=== PATIENT | female | born 1985 | race Caucasian/White ===

== ENCOUNTER 2016-09-05 02:11 | Emergency (ER) | payer OTHER ==
--- NOTE | 2016-09-05 02:24 | PDOC ---
History of Present Illness - History of Present Illness Initial Comments: 09/05/16 03:02 The patient is a 31 year old female, with no significant past medical history, who presents to the emergency department with sudden headache and nausea which woke her from her sleep this morning. As per her , the patient woke up shaking and complaining of feeling like her "heart is racing". The patient denies taking anything for pain. The states she does patient states she does not work because she had surgery to her hip some time ago, but still experiences pain to her hip. She denies chest pain, shortness of breath, and dizziness. She denies fever, chills, vomit, diarrhea and constipation. She denies dysuria, frequency, urgency and hematuria. Allergies: aspirin Past surgical history: left hip surgery Social history: denies toxic habits <Venus Jaffe - Last Filed: 09/05/16 03:02> <Марина Durant - Last Filed: 09/05/16 05:04> - General Chief Complaint: Tachycardia Stated Complaint: RAPID HEAR BEAT Time Seen by Provider: 09/05/16 02:15 Past History <Venus Jaffe - Last Filed: 09/05/16 03:02> - Surgical History Orthopedic Surgery: Yes (left hip replacement ) - Psycho/Social/Smoking Cessation Hx Anxiety: No Suicidal Ideation: No Smoking History: Never smoked Have you smoked in the past 12 months: No Hx Alcohol Use: No Drug/Substance Use Hx: No Substance Use Type: None <Марина Durant - Last Filed: 09/05/16 05:04> - Past Medical History Allergies/Adverse Reactions: Allergies Allergy/AdvReac Type Severity Reaction Status Date / Time aspirin AdvReac Verified 09/05/16 02:19 Home Medications: Ambulatory Orders Gabapentin 300 mg PO BID #90 capsule 12/27/15 Oxycodone HCl/Acetaminophen [Percocet 5-325 mg Tablet] 2 tab PO Q6H PRN #12 tablet MDD 4 12/27/15 Cholecalciferol (Vitamin D3) [Vitamin D-400] 400 unit PO DAILY 09/05/16 Nitrofurantoin Monohyd/M-Cryst [Macrobid -] 100 mg PO BID #14 capsule 09/05/16 Review of Systems - Review of Systems Able to Perform ROS?: Yes Comments:: 09/05/16 03:05 GENERAL/CONSTITUTIONAL: No fever or chills. No weakness. HEAD, EYES, EARS, NOSE AND THROAT: No change in vision. No ear pain or discharge. No sore throat. CARDIOVASCULAR: (+) palpitations. No chest pain or shortness of breath. RESPIRATORY: No cough, wheezing, or hemoptysis. GASTROINTESTINAL: (+) nausea, No vomiting, diarrhea or constipation. GENITOURINARY: No dysuria, frequency, or change in urination. MUSCULOSKELETAL: No joint or muscle swelling or pain. No neck or back pain. SKIN: No rash NEUROLOGIC: (+) headache, No vertigo, loss of consciousness, or change in strength/sensation. ENDOCRINE: No increased thirst. No abnormal weight change. HEMATOLOGIC/LYMPHATIC: No anemia, easy bleeding, or history of blood clots. ALLERGIC/IMMUNOLOGIC: No hives or skin allergy. <Venus Jaffe - Last Filed: 09/05/16 03:02> *Physical Exam - Vital Signs Last Vital Signs Temp Pulse Resp BP Pulse Ox 134 H 30 H 128/80 99 09/05/16 02:20 09/05/16 02:20 09/05/16 02:20 09/05/16 02:20 - Physical Exam Comments: 09/05/16 03:05 GENERAL: (+) anxious appearing. Awake, alert, and fully oriented, in no acute distress HEAD: No signs of trauma EYES: PERRLA, EOMI, sclera anicteric, conjunctiva clear ENT: Auricles normal inspection, hearing grossly normal, nares patent, oropharynx clear without exudates. Moist mucosa NECK: Normal ROM, supple, no lymphadenopathy, JVD, or masses LUNGS: Breath sounds equal, clear to auscultation bilaterally. No wheezes, and no crackles HEART: (+) tachycardic rate with normal rhythm, normal S1 and S2, no murmurs, rubs or gallops ABDOMEN: Soft, nontender, normoactive bowel sounds. No guarding, no rebound. No masses EXTREMITIES: Normal range of motion, no edema. No clubbing or cyanosis. No cords, erythema, or tenderness NEUROLOGICAL: Cranial nerves II through XII grossly intact. Normal speech, normal gait SKIN: Warm, Dry, normal turgor, no rashes or lesions noted. <Venus Jaffe - Last Filed: 09/05/16 03:02> - Vital Signs Last Vital Signs Temp Pulse Resp BP Pulse Ox 134 H 30 H 128/80 99 09/05/16 02:20 09/05/16 02:20 09/05/16 02:20 09/05/16 02:20 <Марина Durant - Last Filed: 09/05/16 05:04> ED Treatment Course - LABORATORY CBC & Chemistry Diagram: 09/05/16 03:57 09/05/16 03:57 <Марина Durant - Last Filed: 09/05/16 05:04> Medical Decision Making - Medical Decision Making 09/05/16 04:57 Pt comes with headache and abdominal pain. She has a slight UTI, all other labs are normal; Pt was treated with tylenol for pain. She keeps asking for pain meds. She tells me that she has chronic hip pain and she wants oxycodone. However, pt is likely addicted to the oxycodone, and I will not treat her with narcotics. Pt is stable for discharge. Follow with medicine clinic and with nursing attendant 09/05/16 05:03 Rx Written Rx Dispensed Drug Quantity Days Supply Prescriber Name 08/24/2016 08/24/2016 endocet 10-325 mg tablet 51 17 Lalito Williamson MD 08/12/2016 08/12/2016 endocet 10-325 mg tablet 56 14 Lalito Williamson MD Patient Name: Licha Singh Date: 1985 Address: [address] [place] [address] Sex: Female Rx Written Rx Dispensed Drug Quantity Days Supply Prescriber Name 06/06/2016 06/06/2016 oxycodone-acetaminophen 10-325 mg tab 90 30 Lalito Williamson MD 05/04/2016 05/04/2016 oxycodone-acetaminophen 10-325 mg tab 90 30 Lalito Williamson MD 04/18/2016 04/18/2016 oxycodone-acetaminophen 10-325 mg tab 90 15 Lalito Williamson MD 03/09/2016 03/09/2016 oxycodone-acetaminophen 10-325 mg tab 90 15 Lalito Williamson MD 02/10/2016 02/10/2016 oxycodone-acetaminophen 10-325 mg tab 90 15 Lalito Williamson MD 01/18/2016 01/18/2016 oxycodone-acetaminophen 10-325 mg tab 90 15 Lalito Williamson MD 01/04/2016 01/04/2016 oxycodone-acetaminophen 7.5-325 mg tab 28 14 Lalito Williamson MD 12/30/2015 12/31/2015 lyrica 50 mg capsule 24 8 Torri Dawkins NP 12/07/2015 12/13/2015 oxycodone-acetaminophen 10-325 mg tab 90 15 Lalito Williamson MD 12/03/2015 12/03/2015 [facility] 5-[facility]17[facility]2015 11/17/2015 [facility]one hcl 5 mg tablet [facility] 09/14/2015 09/14/2015 oxycodone-acetaminophen 10-325 mg tab 60 15 Bessy Mena 09/07/2015 09/07/2015 oxycontin 10 mg tablet 14 7 Jakub Ho (Zahraa Berman ) Pt is addicted to narcotics <Марина Durant - Last Filed: 09/05/16 05:04> *DC/Admit/Observation/Transfer - Attestations Scribe Attestion: 09/05/16 03:07 Documentation prepared by Venus Jaffe, acting as certified medical coder for Марина Durant MD <Venus Jaffe - Last Filed: 09/05/16 03:02> - Discharge Dispostion Admit: No <Марина Durant - Last Filed: 09/05/16 05:04> Diagnosis at time of Disposition: UTI (urinary tract infection), Opiate withdrawal, Narcotic abuse, Narcotic dependence - Discharge Dispostion Disposition: HOME Condition at time of disposition: Stable - Prescriptions Prescriptions: Nitrofurantoin Monohyd/M-Cryst [Macrobid -] 100 mg PO BID #14 capsule - Referrals Referrals: Pavel England MD [Staff Physician] - - Patient Instructions Printed Discharge Instructions: Urinary Tract Infection
[2016-09-05 02:43] VITALS: BP 128/80; BMI 25.4
[2016-09-05] MEDS ORDERED: ACETAMINOPHEN 500 MG TABLET (FP) PO ONE (03:00)
[2016-09-05] MEDS ORDERED: ACETAMINOPHEN 325 MG TABLET (FP) ONE (03:03)
[2016-09-05 03:07] VITALS: PULSE 101
[2016-09-05 04:07] LABS: BASOPHIL 0.5 % (0-2.0); EOSINOPHIL 0.4 % (0-4.5); MCH 30.7 pg (25.7-33.7); MCHC 32.7 g/dl (32.0-36.0); MEAN PLT VOLUME 8.2 fl (7.5-11.1); NEUTROPHILS 68.3 % (42.8-82.8); PLATELET COUNT 386 K/MM3 (134-434); RDW 12.9 % (11.6-15.6)
[2016-09-05 04:23] LABS: URINE APPEARANCE CLEAR; URINE BILIRUBIN NEGATIVE (NEGATIVE); URINE COLOR LTYELLOW; URINE GLUCOSE (UA) NEGATIVE (NEGATIVE); URINE KETONE TRACE (NEGATIVE); URINE NITRITE NEGATIVE (NEGATIVE); URINE PROTEIN NEGATIVE (NEGATIVE); URINE UROBILINOGEN NEGATIVE E.U./dl (0.2-1.0)
[2016-09-05 04:25] LABS: URINE BLOOD 1+ (NEGATIVE); URINE LEUK ESTERASE 3+ (NEGATIVE)
[2016-09-05 04:27] LABS: URINE BACTERIA FEW /hpf (NONE SEEN); URINE MUCUS RARE; URINE RBC 2 /hpf (0-3); URINE WBC 2 /hpf (3-5)
[2016-09-05 04:29] LABS: ALBUMIN 4.4 g/dl (3.4-5.0); ANION GAP 14 (8-16); BILIRUBIN,TOTAL 0.4 mg/dL (0.2-1.0); CALCIUM 9.7 mg/dL (8.5-10.1); CO2 20 mmol/L (21-32); CREATININE 0.7 mg/dL (0.55-1.02); GLUCOSE,RANDOM 92 mg/dL (74-106); SGOT/AST 14 U/L (15-37); SGPT/ALT 21 U/L (12-78); TOT PROT 7.3 g/dl (6.4-8.2)
[2016-09-05 04:30] LABS: ALK PHOS 69 U/L (45-117)
[2016-09-05] MEDS ORDERED: NITROFURANTOIN MACROCRYSTAL 50 MG CAPSULE (FP) PO SCH (04:30)
[2016-09-05] MEDS ORDERED: NITROFURANTOIN MACROCRYSTAL 50 MG CAPSULE (FP) ONE (04:52)
--- NOTE | 2016-09-05 10:15 | EKG ---
Test Reason : Blood Pressure : / mmHG Vent. Rate : 108 BPM Atrial Rate : 108 BPM P-R Int : 126 ms QRS Dur : 074 ms QT Int : 340 ms P-R-T Axes : 050 015 -19 degrees QTc Int : 455 ms SINUS TACHYCARDIA NONSPECIFIC T WAVE ABNORMALITY ABNORMAL ECG WHEN COMPARED WITH ECG OF 01-JAN-2016 15:44, NO SIGNIFICANT CHANGE WAS FOUND Confirmed by JAYNA CHEEK MD ([id number]) on 09/05/2016 10:14:54 AM Referred By: Confirmed By:JAYNA CHEEK MD
== END 2016-09-05 05:04 | disposition home or self-care (01) ==
LOC: JER 02:11
DX: N39.0 Urinary tract infection, site not specified (principal); F11.23 Opioid dependence with withdrawal
CPT/HCPCS: 36415; 80053; 81003; 81015; 85025; 93005; 93010; 99283-25

== ENCOUNTER 2016-09-05 11:08 | Emergency (ER) | payer OTHER ==
[2016-09-05 11:25] VITALS: BP 121/74; PULSE 96; TEMP 98.1; BMI 25.4
[2016-09-05] MEDS ORDERED: morphine CARPU-JECT 4 MG/1 ML DISP.SYRIN IVPUSH ONE (12:05)
[2016-09-05] MEDS ORDERED: METOCLOPRAMIDE HCL INJECTION 10 MG/2 ML VIAL IVPB ONE (12:05)
[2016-09-05] MEDS ORDERED: METOCLOPRAMIDE HCL INJECTION 10 MG/2 ML VIAL ONE (12:22)
[2016-09-05] MEDS ORDERED: morphine CARPU-JECT 4 MG/1 ML DISP.SYRIN ONE (12:22)
[2016-09-05 12:29] LABS: BASOPHIL 0.5 % (0-2.0); EOSINOPHIL 0.3 % (0-4.5); MCH 31.3 pg (25.7-33.7); MCHC 33.4 g/dl (32.0-36.0); MEAN CELL VOLUME 93.8 fl (80-96); NEUTROPHILS 72.1 % (42.8-82.8); PLATELET COUNT 337 K/MM3 (134-434); RDW 12.8 % (11.6-15.6); WHITE BLOOD COUNT 11.3 K/mm3 (4.0-10.0)
[2016-09-05 13:01] LABS: ALBUMIN 4.3 g/dl (3.4-5.0); ALK PHOS 66 U/L (45-117); ANION GAP 9 (8-16); BILIRUBIN,TOTAL 0.5 mg/dL (0.2-1.0); CALCIUM 9.1 mg/dL (8.5-10.1); CO2 23 mmol/L (21-32); CREATININE 0.6 mg/dL (0.55-1.02); GLUCOSE,RANDOM 87 mg/dL (74-106); SGOT/AST 15 U/L (15-37); SGPT/ALT 19 U/L (12-78); TOT PROT 7.4 g/dl (6.4-8.2)
--- NOTE | 2016-09-05 14:27 | PDOC ---
History of Present Illness - General History Source: Patient, Old Records Exam Limitations: No Limitations - History of Present Illness Initial Comments: 09/05/16 14:41 The patient is a 31 year old female, with a significant past medical history of anemia, who presents to the emergency department with palpitations since 8am this morning, headache for 1 week as well as bilateral hip pain for the past 2 weeks. She also reports nausea and shortness of breath associated with her chief complaints. She describes her hip pain as ranging from mild to moderate, without radiation or modifying factors. She states that she is having blood flow issues on the right side of her hip for which she is seeing a surgeon for possible surgery. She describes her headache as ranging from mild to moderate, without radiation or modifying factors. The patient was in the ED earlier this morning for the same symptoms, headache, nausea, palpitation and hip pain. She was given Tylenol and antibiotics for a mild UTI that was diagnosed. She was discharged after improvement of symptoms. The patient denies chest pain, shortness of breath and dizziness. Denies fever, chills, vomit, diarrhea and constipation. Denies dysuria, frequency, urgency and hematuria. Allergies: Aspirin Past surgical history: Left sided hip surgery (x2) Social history: No alcohol, tobacco or drug use reported Surgeon: Dr. Gonzalez <Shola Rothman - Last Filed: 09/05/16 14:41> - General History Source: Patient Exam Limitations: No Limitations <Darin Garcia - Last Filed: 09/05/16 17:01> - General Chief Complaint: Palpitations Stated Complaint: TACHYCARDIA Time Seen by Provider: 09/05/16 11:45 Past History <Shola Rothman - Last Filed: 09/05/16 14:41> - Surgical History Orthopedic Surgery: Yes (left hip replacement ) - Psycho/Social/Smoking Cessation Hx Anxiety: No Suicidal Ideation: No Smoking History: Never smoked Have you smoked in the past 12 months: No Hx Alcohol Use: No Drug/Substance Use Hx: No Substance Use Type: None <Darin Garcia - Last Filed: 09/05/16 17:01> - Past Medical History Allergies/Adverse Reactions: Allergies Allergy/AdvReac Type Severity Reaction Status Date / Time aspirin AdvReac Verified 09/05/16 11:23 Home Medications: Ambulatory Orders Gabapentin 300 mg PO BID #90 capsule 12/27/15 Gabapentin 300 mg PO TID PRN #21 capsule 09/05/16 Oxycodone HCl 5 mg PO Q6H PRN #12 tablet MDD 4 09/05/16 Review of Systems - Review of Systems Able to Perform ROS?: Yes Comments:: 09/05/16 14:41 GENERAL/CONSTITUTIONAL: No fever or chills. No weakness. HEAD, EYES, EARS, NOSE AND THROAT: No change in vision. No ear pain or discharge. No sore throat. CARDIOVASCULAR: No chest pain or shortness of breath RESPIRATORY: No cough, wheezing, or hemoptysis. GASTROINTESTINAL: (+)Nausea. No vomiting, diarrhea or constipation. GENITOURINARY: No dysuria, frequency, or change in urination. MUSCULOSKELETAL: (+)Bilateral hip pain. No neck or back pain. SKIN: No rash NEUROLOGIC: (+)Headache. No vertigo, loss of consciousness, or change in strength/sensation. ENDOCRINE: No increased thirst. No abnormal weight change HEMATOLOGIC/LYMPHATIC: No anemia, easy bleeding, or history of blood clots. ALLERGIC/IMMUNOLOGIC: No hives or skin allergy. <Shola Rothman - Last Filed: 09/05/16 14:41> *Physical Exam - Vital Signs Last Vital Signs Temp Pulse Resp BP Pulse Ox 98.1 F 96 H 19 121/74 100 09/05/16 11:23 09/05/16 11:23 09/05/16 11:23 09/05/16 11:23 09/05/16 11:23 - Physical Exam Comments: 09/05/16 14:41 GENERAL: Awake, alert, and fully oriented, in no acute distress HEAD: No signs of trauma, normocephalic, atraumatic EYES: PERRLA, EOMI, sclera anicteric, conjunctiva clear ENT: Auricles normal inspection, hearing grossly normal, nares patent, oropharynx clear without exudates. Moist mucosa NECK: Normal ROM, supple, no lymphadenopathy, JVD, or masses LUNGS: No distress, speaks full sentences, clear to auscultation bilaterally HEART: Regular rate and rhythm, normal S1 and S2, no murmurs, rubs or gallops, peripheral pulses normal and equal bilaterally. ABDOMEN: Soft, nontender, normoactive bowel sounds. No guarding, no rebound. No masses EXTREMITIES: Normal inspection, Normal range of motion, no edema. No clubbing or cyanosis. NEUROLOGICAL: Cranial nerves II through XII grossly intact. Normal speech, normal gait, no focal sensorimotor deficits SKIN: Warm, Dry, normal turgor, no rashes or lesions noted. <Shola Rothman - Last Filed: 09/05/16 14:41> - Vital Signs Last Vital Signs Temp Pulse Resp BP Pulse Ox 98.1 F 96 H 19 121/74 100 09/05/16 11:23 09/05/16 11:23 09/05/16 11:23 09/05/16 11:23 09/05/16 11:23 <Darin Garcia - Last Filed: 09/05/16 17:01> Heart Score/ECG Review #1 ECG reviewed & interpreted by me at: 11:20 09/05/16 15:19 NSR 95, TWI III, T wave flat v2,V5-V6, no std/monica, QTC 490 msec <Darin Garcia - Last Filed: 09/05/16 17:01> ED Treatment Course - LABORATORY CBC & Chemistry Diagram: 09/05/16 12:20 09/05/16 12:20 - ADDITIONAL ORDERS Additional order review: Laboratory Results 09/05/16 09/05/16 12:20 12:20 Sodium 141 Potassium 3.9 Chloride 109 H Carbon Dioxide 23 Anion Gap 9 BUN 10 Creatinine 0.6 Creat Clearance w eGFR > 60 Random Glucose 87 Calcium 9.1 Total Bilirubin 0.5 D AST 15 ALT 19 Alkaline Phosphatase 66 Total Protein 7.4 Albumin 4.3 Serum , Qual Negative 09/05/16 12:20 RBC 4.04 MCV 93.8 MCHC 33.4 RDW 12.8 MPV 8.0 Neutrophils % 72.1 Lymphocytes % 21.2 Monocytes % 5.9 Eosinophils % 0.3 Basophils % 0.5 - Medications Given in the ED: ED Medications Discontinued Medications Generic Name Dose Route Start Last Admin Trade Name Freq PRN Reason Stop Dose Admin Metoclopramide HCl 10 mg 09/05/16 12:09/05/16 12:27 Reglan Injection - IVPB 09/05/16 12:06 10 mg ONCE ONE Administration Morphine Sulfate 4 mg 09/05/16 12:09/05/16 12:27 Morphine Injection - IVPUSH 09/05/16 12:06 4 mg ONCE ONE Administration Oxycodone HCl 10 mg 09/05/16 14:29 09/05/16 14:38 Roxicodone - PO 09/05/16 14:30 10 mg ONCE ONE Administration <Shola Rothman - Last Filed: 09/05/16 14:41> - LABORATORY CBC & Chemistry Diagram: 09/05/16 12:20 09/05/16 12:20 - ADDITIONAL ORDERS Additional order review: Laboratory Results 09/05/16 09/05/16 12:20 12:20 Sodium 141 Potassium 3.9 Chloride 109 H Carbon Dioxide 23 Anion Gap 9 BUN 10 Creatinine 0.6 Creat Clearance w eGFR > 60 Random Glucose 87 Calcium 9.1 Total Bilirubin 0.5 D AST 15 ALT 19 Alkaline Phosphatase 66 Total Protein 7.4 Albumin 4.3 Serum , Qual Negative 09/05/16 12:20 RBC 4.04 MCV 93.8 MCHC 33.4 RDW 12.8 MPV 8.0 Neutrophils % 72.1 Lymphocytes % 21.2 Monocytes % 5.9 Eosinophils % 0.3 Basophils % 0.5 - RADIOLOGY Radiology Studies Ordered: Category Date Time Status HEAD CT WITHOUT CONTRAST [CT] Stat CT Scan 09/05/16 12:05 Completed HIP & PELVIS-RIGHT [RAD] Stat Radiology 09/05/16 12:05 Taken - Medications Given in the ED: ED Medications Discontinued Medications Generic Name Dose Route Start Last Admin Trade Name Freq PRN Reason Stop Dose Admin Metoclopramide HCl 10 mg 09/05/16 12:05 09/05/16 12:27 Reglan Injection - IVPB 09/05/16 12:06 10 mg ONCE ONE Administration Morphine Sulfate 4 mg 09/05/16 12:05 09/05/16 12:27 Morphine Injection - IVPUSH 09/05/16 12:06 4 mg ONCE ONE Administration <Darin Garcia - Last Filed: 09/05/16 17:01> Medical Decision Making - Medical Decision Making 09/05/16 15:20 A portion of this note was documented by scribe services under my direction. I have reviewed the details of the note, within reason, and agree with the documentation with the following case summary and management plan written by me. Patient treated in the ED. Nursing notes are reviewed and incorporated into the medical decision-making. Vital signs reviewed. Peripheral IV access obtained by the nurse, laboratory studies are drawn and sent, reviewed and interpreted by myself. 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 The patient reports that the pain has been intermittent and progressively worsened despite taking 1 tablet of Percocet every 6 hours as needed for pain. The patient states that the pain causes her to feel palpitations but patient denies chest pain or shortness of breath. The patient was seen in the ED earlier this morning and was diagnosis potential drug- seeking behavior and given Tylenol. The patient also has developed a tension- like headache for one week which is new. Denies history of migraines or family history of migraines. With accommodation a headache and the worsening right hip pain, patient came to the ED. The patient states that she ran out of her Percocets. I had obtain a head CT which was negative. I obtain a pelvis x-ray which shows no acute findings. An her blood work and she is no acute findings. EKG is stable. I suspect that this is acute on chronic pain. Patient's pain improved with 2 tablets of Percocets and morphine. I instructed the patient that it is very important that she follows up with her doctor. She is scheduled to have potential right hip replacement. 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 I advised that I will only write several oxycodone's and for the rest she needs to follow up with her doctors. Patient is also requesting her refills of her gabapentin 300 mg 3 times a day. Patient will go home with her family. I discussed the physical exam findings, ancillary test results and final diagnoses with the patient. I answered all of the patient's questions. The patient was satisfied with the care received and felt comfortable with the discharge plan and treatment plan. The patient will call their primary care physician within 24 hours to arrange follow-up and will return to the Emergency Department with any new, persistant or worsening symptoms. <Darin Garcia - Last Filed: 09/05/16 17:01> *DC/Admit/Observation/Transfer - Attestations Scribe Attestion: 09/05/16 14:42 Documentation prepared by Shola Rothman, acting as family practice medical doctor for Darin Garcia MD <Shola Rothman - Last Filed: 09/05/16 14:41> - Discharge Dispostion Admit: No <Darin Garcia - Last Filed: 09/05/16 17:01> Diagnosis at time of Disposition: Right hip pain - Discharge Dispostion Disposition: HOME Condition at time of disposition: Improved - Prescriptions Prescriptions: Gabapentin 300 mg PO TID PRN #21 capsule PRN Reason: Chronic Hip Pain Oxycodone HCl 5 mg PO Q6H PRN #12 tablet MDD 4 PRN Reason: Pain Level 6-10 - Referrals Referrals: Dayron Cline MD [Staff Physician] - - Patient Instructions Printed Discharge Instructions: Help for Hip Pain Additional Instructions: Your workup done shows no acute findings at this time. Your pain is likely secondary to your chronic hip pain. It is very important that you follow-up with your surgeon as prior. You will need to evaluate for potential surgery. If he develop uncontrollable pain, please return to the ER for further evaluation. Print Language: TAJIK
[2016-09-05] MEDS ORDERED: oxyCODONE HCL 5 MG TABLET PO ONE (14:29)
[2016-09-05] MEDS ORDERED: oxyCODONE HCL 5 MG TABLET ONE (14:37)
--- NOTE | 2016-09-06 23:02 | EKG ---
Test Reason : Blood Pressure : / mmHG Vent. Rate : 095 BPM Atrial Rate : 095 BPM P-R Int : 140 ms QRS Dur : 076 ms QT Int : 390 ms P-R-T Axes : 023 011 -03 degrees QTc Int : 490 ms NORMAL SINUS RHYTHM NONSPECIFIC T WAVE ABNORMALITY PROLONGED QT ABNORMAL ECG WHEN COMPARED WITH ECG OF 05-SEP-2016 02:32, NO SIGNIFICANT CHANGE WAS FOUND Confirmed by ALEXIS CULVER MD ([id number]) on 09/06/2016 11:01:26 PM Referred By: Confirmed By:ALEXIS CULVER MD
== END 2016-09-05 16:09 | disposition home or self-care (01) ==
LOC: JER 11:08
PROC: 3E033NZ Introduction of Analgesics, Hypnotics, Sedatives into Peripheral Vein, Percutaneous Approach (ICD-10-PCS; principal; 2016-09-05)
PROC: 3E033GC Introduction of Other Therapeutic Substance into Peripheral Vein, Percutaneous Approach (ICD-10-PCS; 2016-09-05)
DX: M25.551 Pain in right hip (principal); Z96.642 Presence of left artificial hip joint
CPT/HCPCS: 36415; 70450-TC; 73523-TC; 80053; 84703; 85025; 93005; 93010; 96374; 96375; 99281-25

== ENCOUNTER 2016-12-16 06:02 | Emergency (ER) | payer OTHER ==
[2016-12-16 06:26] VITALS: BMI 27.1
[2016-12-16] MEDS ORDERED: SODIUM CHLORIDE 1,000 ML IV STA (06:30)
[2016-12-16] MEDS ORDERED: ONDANSETRON 4 MG/2 ML VIAL IVPUSH ONE (06:31)
[2016-12-16] MEDS ORDERED: morphine CARPU-JECT 2 MG/1 ML DISP.SYRIN IVPUSH ONE (06:31)
[2016-12-16] MEDS ORDERED: ONDANSETRON 4 MG/2 ML VIAL ONE (06:36)
[2016-12-16] MEDS ORDERED: morphine CARPU-JECT 4 MG/1 ML DISP.SYRIN ONE (06:36)
--- NOTE | 2016-12-16 06:40 | PDOC ---
History of Present Illness - General Chief Complaint: Pain Stated Complaint: STOMACH PAIN/VOMITING Time Seen by Provider: 12/16/16 06:17 - History of Present Illness Initial Comments: 12/16/16 06:34 31 yo F with h/o gastritis, chronic left hip pain, who presents with abdominal pain. Pt. reports 2 weeks of abdominal pain, N/V, with increased severity and frequency over night. States that she has been experiencing remitting, diffuse, sharp, abdominal pain lasting 1-2 minutes and recurring every 30 minutes. Has vomited once overnight and denies blood in emesis. Endorses diffuse tension type headache and loss of appetite. Complains of dysuria for 2 days. Abdominal pain with no specific triggers, absent postprandial pain, and no alleviating factors. Denies constipation/diarrhea, blood in stool. Denies fevers/chills, chest pain, SOB, lightheadedness, vision disturbance, syncope, weakness, numbness/tingling, urinary incontinence, hematuria. Denies NSAID or antacid use. LMP 2 weeks ago. Denies irregular vaginal discharge or bleeding. H/o C- section. Denies abdominal trauma. Past History - Past Medical History Allergies/Adverse Reactions: Allergies Allergy/AdvReac Type Severity Reaction Status Date / Time aspirin AdvReac Verified 09/05/16 11:23 Home Medications: Ambulatory Orders Gabapentin 300 mg PO BID #90 capsule 12/27/15 Gabapentin 300 mg PO TID PRN #21 capsule 09/05/16 Cephalexin [Keflex] 500 mg PO TID #42 capsule 12/16/16 Ondansetron [Zofran Odt -] 4 mg SL BID PRN #14 od.tablet 12/16/16 Oxycodone HCl 10 mg PO Q6H PRN MDD 4 12/16/16 - Surgical History Orthopedic Surgery: Yes (left hip replacement ) - Psycho/Social/Smoking Cessation Hx Anxiety: No Suicidal Ideation: No Smoking History: Never smoked Have you smoked in the past 12 months: No Information on smoking cessation initiated: No Hx Alcohol Use: No Drug/Substance Use Hx: No Substance Use Type: None Review of Systems - Review of Systems Comments:: 12/16/16 06:41 GENERAL/CONSTITUTIONAL: No fever or chills. No weakness. HEAD, EYES, EARS, NOSE AND THROAT: No change in vision. No ear pain or discharge. No sore throat. CARDIOVASCULAR: No chest pain or shortness of breath RESPIRATORY: No cough, wheezing, or hemoptysis. GASTROINTESTINAL: + Abdominal pain, nausea, vomiting. No diarrhea or constipation. GENITOURINARY: No dysuria, frequency, or change in urination. MUSCULOSKELETAL: No joint or muscle swelling or pain. No neck or back pain. SKIN: No rash NEUROLOGIC:+ headache. No vertigo, loss of consciousness, or change in strength/ sensation. ENDOCRINE: No increased thirst. No abnormal weight change HEMATOLOGIC/LYMPHATIC: No anemia, easy bleeding, or history of blood clots. ALLERGIC/IMMUNOLOGIC: No hives or skin allergy. *Physical Exam - Vital Signs Last Vital Signs Temp Pulse Resp BP Pulse Ox 98.2 F 20 119/98 98 12/16/16 06:22 12/16/16 06:22 12/16/16 06:22 12/16/16 06:22 - Physical Exam Comments: 12/16/16 06:41 GENERAL: Awake, alert, and fully oriented, in no acute distress HEAD: No signs of trauma, normocephalic, atraumatic EYES: PERRLA, EOMI, sclera anicteric, conjunctiva clear ENT: Auricles normal inspection, hearing grossly normal, nares patent, oropharynx clear without exudates. Moist mucosa NECK: Normal ROM, supple, no lymphadenopathy, JVD, or masses LUNGS: No distress, speaks full sentences, clear to auscultation bilaterally HEART: Regular rate and rhythm, normal S1 and S2, no murmurs, rubs or gallops, peripheral pulses normal and equal bilaterally. ABDOMEN:TTP in all four quadrants. Negative guarding, rebound, rigidity. Absent mcburney point tenderness, or hernandez sign. Nontender, normoactive bowel sounds. No guarding, no rebound. No masses. Absent CVA tenderness. EXTREMITIES: Normal inspection, Normal range of motion, no edema. No clubbing or cyanosis. SKIN: Warm, Dry, normal turgor, no rashes or lesions noted. General Appearance: Yes: Nourished ED Treatment Course - LABORATORY CBC & Chemistry Diagram: 12/16/16 06:48 12/16/16 06:48 Medical Decision Making - Medical Decision Making 12/16/16 06:44 31 yo F with h/o gastritis, chronic left hip pain, who presents with abdominal pain. Pt. reports 2 weeks of abdominal pain, N/V, with increased severity and frequency over night. States that she has been experiencing remitting, diffuse, sharp, abdominal pain lasting 1-2 minutes and recurring every 30 minutes. Hemodynamically stable with diffuse ttp. Pt. with chronic pain managed with oxycodone 10 mg PO. Low suspicion for mesenteric ischemia . Denies postprandial pain, and absent disproportionate pain. Low suspicion for SBO, normal bowel habits. DDx:Gastritis, PUD, GERD, constipation. ED Course: CBC, CMP, Lipase BHCG NS 1 L [place] UA 12/16/16 07:05 CBC: 14.0 12/16/16 07:06 UA: + Urine Nitrite, trace leuk esterase, and 1+ Blood. *DC/Admit/Observation/Transfer Diagnosis at time of Disposition: Pyelonephritis - Prescriptions Prescriptions: Cephalexin [Keflex] 500 mg PO TID #42 capsule Ondansetron [Zofran Odt -] 4 mg SL BID PRN #14 od.tablet PRN Reason: Nausea And/Or Vomiting - Referrals Referrals: Vania Patricia MD [Primary Care Provider] - - Patient Instructions Printed Discharge Instructions: DI for Kidney Infection Additional Instructions: Usted fue visto por cotton dolor, nuseas y vmitos. Vimos que usted tiene óscar infeccin en cotton orina y le tratar con antibiticos. Joie sntomas se mejorarn despus de tratar la infeccin. Por favor, siga con cotton mdico de atencin primaria esta semana. Por favor regrese a la [place] si tiene nuseas, vmitos o fiebre empeorando a pesar de cotton uso de medicamentos. Print Language: [place]OT[place]
[2016-12-16] MEDS ORDERED: MAG HYDROX/AL HYDROX/SIMETH 30 ML UNIT-DOSE CUP PO ONE (06:51)
[2016-12-16] MEDS ORDERED: MAG HYDROX/AL HYDROX/SIMETH 30 ML UNIT-DOSE CUP ONE (06:56)
[2016-12-16 06:59] LABS: URINE APPEARANCE CLEAR; URINE BILIRUBIN NEGATIVE (NEGATIVE); URINE BLOOD 1+ (NEGATIVE); URINE COLOR YELLOW; URINE GLUCOSE (UA) NEGATIVE (NEGATIVE); URINE KETONE TRACE (NEGATIVE); URINE LEUK ESTERASE TRACE (NEGATIVE); URINE NITRITE POSITIVE (NEGATIVE); URINE PROTEIN NEGATIVE (NEGATIVE); URINE UROBILINOGEN NEGATIVE mg/dL (0.2-1.0)
[2016-12-16 07:02] LABS: BASOPHIL 0.4 % (0-2.0); EOSINOPHIL 0.6 % (0-4.5); MCH 30.4 pg (25.7-33.7); MEAN CELL VOLUME 89.3 fl (80-96); MEAN PLT VOLUME 8.2 fl (7.5-11.1); NEUTROPHILS 64.5 % (42.8-82.8); PLATELET COUNT 388 K/MM3 (134-434)
[2016-12-16 07:07] LABS: URINE MUCUS RARE; URINE RBC 3 /hpf (0-3); URINE WBC 6 /hpf (3-5)
--- NOTE | 2016-12-16 07:14 | PDOC ---
Attending Attestation - Resident Resident Name: Vincent Torres - ED Attending Attestation I have performed the following: I have examined & evaluated the patient, The case was reviewed & discussed with the resident, I agree w/resident's findings & plan, Exceptions are as noted - HPI HPI: 31 yo F history L hip replacement secondary to avascular necrosis, chronic low back pain and hip pain presents with 2 week history of intermittent history N/V , dysuria, malodorous urine, lower abdominal pain. Denies diarrhea, fever, constipation. No prior similar symptoms. - Physicial Exam PE: GENERAL: Awake, alert, and fully oriented, in no acute distress HEAD: No signs of trauma EYES: PERRLA, EOMI, sclera anicteric, conjunctiva clear ENT: Auricles normal inspection, hearing grossly normal, nares patent, oropharynx clear without exudates. Dry mucosa NECK: Normal ROM, supple, no lymphadenopathy, JVD, or masses LUNGS: Breath sounds equal, clear to auscultation bilaterally. No wheezes, and no crackles HEART: Tachycardic, normal S1 and S2, no murmurs, rubs or gallops ABDOMEN: Soft, +suprapubic tenderness, increased bowel sounds. No guarding, no rebound. No masses EXTREMITIES: Normal range of motion, no edema. No clubbing or cyanosis. No cords, erythema, or tenderness NEUROLOGICAL: Cranial nerves II through XII grossly intact. Normal speech, normal gait SKIN: Warm, Dry, normal turgor, no rashes or lesions noted. - Medical Decision Making Pt with history chronic hip pain and back pain presents with suprapubic pain, dysuria, intermittent N/V. Symptoms suggestive of UTI, with positive UA. Given the intermittent N/V as well as the duration of the symptoms, will treat as pyelo. Will reassess s/p IVF and abx, poss DC home if improved.
[2016-12-16 07:20] LABS: ALBUMIN 3.8 g/dl (3.4-5.0); ANION GAP 6 (8-16); BILIRUBIN,TOTAL 0.5 mg/dL (0.2-1.0); CALCIUM 8.7 mg/dL (8.5-10.1); CO2 28 mmol/L (21-32); CREATININE 0.7 mg/dL (0.55-1.02); GLUCOSE,RANDOM 85 mg/dL (74-106); SGOT/AST 16 U/L (15-37); SGPT/ALT 26 U/L (12-78); TOT PROT 7.3 g/dl (6.4-8.2)
[2016-12-16 07:21] LABS: ALK PHOS 69 U/L (45-117)
[2016-12-16] MEDS ORDERED: KETOROLAC TROMETHAMINE 15 MG/ML VIAL IVPUSH ONE (07:30)
--- NOTE | 2016-12-16 07:36 | PDOC ---
*Physical Exam - Vital Signs Last Vital Signs Temp Pulse Resp BP Pulse Ox 98.2 F 20 119/98 98 12/16/16 06:22 12/16/16 06:22 12/16/16 06:22 12/16/16 06:22 - Physical Exam General Appearance: Yes: Nourished, Appropriately Dressed. No: Apparent Distress Respiratory/Chest: positive: Lungs Clear, Normal Breath Sounds. negative: Chest Tender, Respiratory Distress, Accessory Muscle Use Cardiovascular: positive: Regular Rhythm, S1, S2, Tachycardia. negative: Murmur , Bradycardia Gastrointestinal/Abdominal: positive: Tender (Suprapubic tenderness), Flat, Soft , Increased Bowel Sounds. negative: Normal Bowel Sounds (Slightly hyperactive bowel sounds), Organomegaly Neurologic: positive: Fully Oriented, Alert, Normal Mood/Affect ED Treatment Course - LABORATORY CBC & Chemistry Diagram: 12/16/16 06:48 12/16/16 06:48 - ADDITIONAL ORDERS Additional order review: Laboratory Results 12/16/16 06:54 Urine Color Yellow Urine Appearance Clear Urine pH 5.0 D Urine Protein Negative Urine Glucose (UA) Negative Urine Ketones Trace H Urine Blood 1+ H Urine Nitrite Positive Urine Bilirubin Negative Urine Urobilinogen Negative Ur Leukocyte Esterase Trace Urine RBC 3 Urine WBC 6 Ur Epithelial Cells Rare Urine Mucus Rare 12/16/16 06:48 RBC 4.47 MCV 89.3 MCHC 34.0 RDW 13.0 MPV 8.2 Neutrophils % 64.5 Lymphocytes % 26.5 D Monocytes % 8.0 Eosinophils % 0.6 D Basophils % 0.4 - Medications Given in the ED: ED Medications Discontinued Medications Generic Name Dose Route Start Last Admin Trade Name Jane PRN Reason Stop Dose Admin Al Hydroxide/Mg Hydroxide 30 ml 12/16/16 06:51 12/16/16 06:58 Mylanta Oral Suspension - PO 12/16/16 06:52 30 ml ONCE ONE Administration Sodium Chloride 1,000 mls @ 1,000 mls/hr 12/16/16 06:30 12/16/16 06:49 Normal Saline - IV 12/16/16 07:29 1,000 mls/hr ASDIR STA Administration Morphine Sulfate 2 mg 12/16/16 06:31 12/16/16 06:49 Morphine Injection - IVPUSH 12/16/16 06:32 2 mg ONCE ONE Administration Ondansetron HCl 4 mg 12/16/16 06:31 12/16/16 06:50 Zofran Injection IVPUSH 12/16/16 06:32 4 mg ONCE ONE Administration Medical Decision Making - Medical Decision Making Patient was signed out in stable condition at 7:[address] Torres. The patient 31 year old female presenting with 2 two weeks of nausea, vomiting, and dysuria. 12/16/16 07:34 Will give one dose Toradol 15 for suprapubic tenderness and 1G Rocephin IV for supposed UTI/ Pyelonephritis. Will repeat vitals and discuss discharge with the patient. 12/16/16 07:51 12/16/16 09:35 Pain resolved and tachycardia resolved after an additional liter of normal saline. Will DC home with Keflex 500 TID x 14 days and Zofran BID PRN x 7 days. *DC/Admit/Observation/Transfer Diagnosis at time of Disposition: Pyelonephritis - Discharge Dispostion Admit: No - Prescriptions Prescriptions: Cephalexin [Keflex] 500 mg PO TID #42 capsule Ondansetron [Zofran Odt -] 4 mg SL BID PRN #14 od.tablet PRN Reason: Nausea And/Or Vomiting - Referrals Referrals: Vania Patricia MD [Primary Care Provider] - - Patient Instructions Printed Discharge Instructions: DI for Kidney Infection Additional Instructions: Usted fue visto por cotton dolor, nuseas y vmitos. Vimos que usted tiene óscar infeccin en cotton orina y le tratar con antibiticos. Joie sntomas se mejorarn despus de tratar la infeccin. Por favor, siga con cotton mdico de atencin primaria esta semana. Por favor regrese a la [place] si tiene nuseas, vmitos o fiebre empeorando a pesar de cotton uso de medicamentos. Print Language: HUNGARIAN - Attestations Physician Attestion: 12/16/16 08:31 I, Dr. Jamila Grullon, attest that this document has been prepared under my direction and personally reviewed by me in its entirety. I further attest, that it accurately reflects all work, treatment, procedures and medical decision -making performed by me. 12/16/16 09:36
[2016-12-16] MEDS ORDERED: cefTRIAXone 1 GM/50 ML BAG (PRE-DOCKED) IVPB ONE (07:50)
[2016-12-16] MEDS ORDERED: KETOROLAC TROMETHAMINE 15 MG/ML VIAL ONE (07:51)
[2016-12-16] MEDS ORDERED: CEFTRIAXONE 50 ML ONE (08:05)
[2016-12-16 08:13] VITALS: BP 107/83
[2016-12-16 08:14] VITALS: TEMP 98.6
[2016-12-16] MEDS ORDERED: SODIUM CHLORIDE 0.9% 1000 ML INFUS.BAG IV ONE (08:17)
[2016-12-16 09:19] VITALS: PULSE 90
== END 2016-12-16 09:50 | disposition home or self-care (01) ==
LOC: JER 06:02
PROC: 3E03329 Introduction of Other Anti-infective into Peripheral Vein, Percutaneous Approach (ICD-10-PCS; principal; 2016-12-16)
PROC: 3E0333Z Introduction of Anti-inflammatory into Peripheral Vein, Percutaneous Approach (ICD-10-PCS; 2016-12-16)
PROC: 3E033NZ Introduction of Analgesics, Hypnotics, Sedatives into Peripheral Vein, Percutaneous Approach (ICD-10-PCS; 2016-12-16)
PROC: 3E033GC Introduction of Other Therapeutic Substance into Peripheral Vein, Percutaneous Approach (ICD-10-PCS; 2016-12-16)
PROC: 3E0337Z Introduction of Electrolytic and Water Balance Substance into Peripheral Vein, Percutaneous Approach (ICD-10-PCS; 2016-12-16)
DX: N12 Tubulo-interstitial nephritis, not specified as acute or chronic (principal); Z87.19 Personal history of other diseases of the digestive system; Z88.6 Allergy status to analgesic agent
CPT/HCPCS: 36415; 80053; 81003; 81015; 83690; 84702; 85025; 96361; 96374; 96375; 99282-25

== ENCOUNTER 2017-07-28 18:19 | Inpatient (IN) | payer OTHER ==
--- NOTE | 2017-07-28 20:00 | PDOC ---
History of Present Illness - General History Source: Patient Exam Limitations: No Limitations - History of Present Illness Initial Comments: 07/28/17 21:23 Patient is a 32 year old female with a significant past medical history of Avascular necrosis in left hip, who presents to the ED with complaints of diffuse abdominal pain that began last night. Patient reports experiencing sudden onset of diffuse abdominal pain shortly after eating chicken soup for dinner. She reports experiencing associated symptoms of nausea and vomiting. Patient reports abdominal pain is a burning pain that she states is a 10/10 in intensity. She reports abdominal pain was bearable last night but states it increased in intensity this evening until she couldn't take it anymore prompting her to have her son call EMS. Denies contact with sick individuals, out of state travelling. Denies dysuria, hematuria, constipation, diarrhea. Denies Allergies: Aspirin Social history: No smoking. No alcohol. No illicit drugs. Surgical history: Left hip replacement s/p 2 years. PMD: None <Desmond Nunez - Last Filed: 07/28/17 21:23> <Liz Weir - Last Filed: 07/29/17 04:34> - General Chief Complaint: Pain, Acute Stated Complaint: ABD PAIN,VOMITING Time Seen by Provider: 07/28/17 19:30 Past History <Desmond Nunez - Last Filed: 07/28/17 21:23> - Past Medical History COPD: No DVT: No Dementia: No - Surgical History Orthopedic Surgery: Yes (left hip replacement ) - Immunization History Immunization Up to Date: Yes - Suicide/Smoking/Psychosocial Hx Smoking History: Never smoked Have you smoked in the past 12 months: No Information on smoking cessation initiated: No Hx Alcohol Use: No Drug/Substance Use Hx: No Substance Use Type: None <Liz Weir - Last Filed: 07/29/17 04:34> - Past Medical History Allergies/Adverse Reactions: Allergies Allergy/AdvReac Type Severity Reaction Status Date / Time aspirin AdvReac Verified 07/28/17 18:37 Home Medications: Ambulatory Orders Gabapentin 300 mg PO TID PRN #21 capsule 09/05/16 Ondansetron [Zofran Odt -] 4 mg SL BID PRN #14 od.tablet 12/16/16 Oxycodone HCl 10 mg PO Q6H PRN MDD 4 12/16/16 Review of Systems - Review of Systems Able to Perform ROS?: Yes Comments:: 07/28/17 21:23 GENERAL/CONSTITUTIONAL: No fever or chills. No weakness. HEAD, EYES, EARS, NOSE AND THROAT: No change in vision. No ear pain or discharge. No sore throat. GASTROINTESTINAL: +Nausea. +Vomiting. No diarrhea or constipation. GENITOURINARY: No dysuria, frequency, or change in urination. CARDIOVASCULAR: No chest pain or shortness of breath. RESPIRATORY: No cough, wheezing, or hemoptysis. MUSCULOSKELETAL: +Abdominal pain. No joint or muscle swelling. No neck or back pain. SKIN: No rash NEUROLOGIC: No headache, vertigo, loss of consciousness, or change in strength/ sensation. ENDOCRINE: No increased thirst. No abnormal weight change. HEMATOLOGIC/LYMPHATIC: No anemia, easy bleeding, or history of blood clots. ALLERGIC/IMMUNOLOGIC: No hives or skin allergy. <Desmond Nunez - Last Filed: 07/28/17 21:23> *Physical Exam - Vital Signs Last Vital Signs Temp Pulse Resp BP Pulse Ox 98.2 F 103 H 17 111/87 100 07/28/17 18:35 07/28/17 18:35 07/28/17 18:35 07/28/17 18:35 07/28/17 18:35 - Physical Exam Comments: 07/28/17 21:23 GENERAL: +appears uncomfortable. +Appears ill but non toxic. Awake, alert, and fully oriented, in no acute distress HEAD: No signs of trauma EYES: PERRLA, EOMI, sclera anicteric, conjunctiva clear ENT: +Dry Mucous membrane. Auricles normal inspection, hearing grossly normal, nares patent, oropharynx clear without exudates. NECK: Normal ROM, supple, no lymphadenopathy, JVD, or masses LUNGS: Breath sounds equal, clear to auscultation bilaterally. No wheezes, and no crackles HEART: Regular rate and rhythm, normal S1 and S2, no murmurs, rubs or gallops ABDOMEN: +Diffuse tenderness with guarding and rebound. Soft, nontender, normoactive bowel sounds. No guarding, no rebound. No masses EXTREMITIES: Normal range of motion, no edema. No clubbing or cyanosis. No cords, erythema, or tenderness NEUROLOGICAL: Cranial nerves II through XII grossly intact. Normal speech, normal gait SKIN: Warm, Dry, normal turgor, no rashes or lesions noted. <EnriqueDesmond whelan - Last Filed: 07/28/17 21:23> - Vital Signs Last Vital Signs Temp Pulse Resp BP Pulse Ox 98.2 F 103 H 17 111/87 100 07/28/17 18:35 07/28/17 18:35 07/28/17 18:35 07/28/17 18:35 07/28/17 18:35 <Liz Weir - Last Filed: 07/29/17 04:34> Heart Score/ECG Review - ECG Impressions Comment:: EKG read 04:24- Sinus tach 101, T inv V3-V4 <Liz Weir - Last Filed: 07/29/17 04:34> ED Treatment Course - LABORATORY CBC & Chemistry Diagram: 07/28/17 20:20 07/28/17 20:20 - ADDITIONAL ORDERS Additional order review: Laboratory Results 07/28/17 20:20 Sodium 138 Chloride 106 Carbon Dioxide 22 Anion Gap 10 BUN 9 Creatinine 0.6 Creat Clearance w eGFR > 60 Random Glucose 99 Calcium 9.3 Total Bilirubin 0.5 ALT 30 Alkaline Phosphatase 87 Total Protein 7.8 Albumin 3.8 Lipase 74 07/28/17 20:20 RBC 4.79 MCV 89.9 MCHC 33.6 RDW 13.8 MPV 9.1 D Neutrophils % No Result Required. Lymphocytes % No Result Required. - Medications Given in the ED: ED Medications Discontinued Medications Generic Name Dose Route Start Last Admin Trade Name Jane PRN Reason Stop Dose Admin Famotidine/Sodium Chloride 20 mg in 50 mls @ 100 mls/hr 07/28/17 20:07 21:00 Pepcid 20 Mg Premixed Ivpb - IVPB 07/28/17 20:36 100 mls/hr ONCE ONE Administration Sodium Chloride 1,000 mls @ 1,000 mls/hr 07/28/17 20:07 07/28/17 20:36 Normal Saline - IV 07/28/17 21:06 1,000 mls/hr ASDIR STA Administration Morphine Sulfate 4 mg 07/28/17 20:07 07/28/17 20:36 Morphine Injection - IVPUSH 07/28/17 20:08 4 mg ONCE ONE Administration Ondansetron HCl 4 mg 07/28/17 20:07 07/28/17 20:36 Zofran Injection IVPUSH 07/28/17 20:08 4 mg ONCE ONE Administration <Desmond Nunez - Last Filed: 07/28/17 21:23> - LABORATORY CBC & Chemistry Diagram: 07/28/17 20:20 07/28/17 20:20 <Liz Weir - Last Filed: 07/29/17 04:34> *DC/Admit/Observation/Transfer - Attestations Scribe Attestion: 07/28/17 21:24 Documentation prepared by Desmond Nunez, acting as medical equipment technician for Liz Weir MD, MD/DO. <Desmond Nunez - Last Filed: 07/28/17 21:23> - Discharge Dispostion Admit: Yes <Liz Weir - Last Filed: 07/29/17 04:34> Diagnosis at time of Disposition: Abdominal pain Qualifiers: Abdominal location: unspecified location Qualified Code(s): R10.9 - Unspecified abdominal pain - Discharge Dispostion Condition at time of disposition: Stable
[2017-07-28] MEDS ORDERED: SODIUM CHLORIDE 1,000 ML IV STA ×2 (20:07→21:45)
[2017-07-28] MEDS ORDERED: FAMOTIDINE 20 MG/50 ML IVPB 20 MG/50 ML MG IVPB ONE ×2 (20:07→20:44)
[2017-07-28] MEDS ORDERED: ONDANSETRON 4 MG/2 ML VIAL IVPUSH ONE (20:07)
[2017-07-28] MEDS ORDERED: morphine CARPU-JECT 4 MG/1 ML DISP.SYRIN IVPUSH ONE (20:07)
[2017-07-28] MEDS ORDERED: morphine SULFATE 4 MG/ML VIAL ONE (20:11)
[2017-07-28] MEDS ORDERED: ONDANSETRON 4 MG/2 ML VIAL ONE (20:11)
[2017-07-28 20:31] LABS: HEMATOCRIT 43.1 % (32.4-45.2); HEMOGLOBIN 14.5 GM/dL (10.7-15.3); MCH 30.2 pg (25.7-33.7); MCHC 33.6 g/dl (32.0-36.0); MEAN CELL VOLUME 89.9 fl (80-96); MEAN PLT VOLUME 9.1 fl (7.5-11.1); PLATELET COUNT 346 K/MM3 (134-434); RBC 4.79 M/mm3 (3.60-5.2); RDW 13.8 % (11.6-15.6); WHITE BLOOD COUNT 21.4 K/mm3 (4.0-10.0)
[2017-07-28] MEDS ORDERED: ALBUTEROL SO4 2.5/IPRATROPIUM 0.5 INH SOL 3 ML VIAL.NEB. NEB ONE (20:44)
[2017-07-28 20:49] LABS: ADD RBC MORPHOLOGY YES
[2017-07-28 21:07] LABS: ALBUMIN 3.8 g/dl (3.4-5.0); ANION GAP 10 (8-16); BILIRUBIN,TOTAL 0.5 mg/dL (0.2-1.0); BLOOD UREA NITROGEN 9 mg/dL (7-18); CALCIUM 9.3 mg/dL (8.5-10.1); CHLORIDE 106 mmol/L (98-107); CO2 22 mmol/L (21-32); CREATININE 0.6 mg/dL (0.55-1.02); GLUCOSE,RANDOM 99 mg/dL (74-106); LIPASE 74 U/L (73-393); SGPT/ALT 30 U/L (12-78); SODIUM 138 mmol/L (136-145); TOT PROT 7.8 g/dl (6.4-8.2)
[2017-07-28 21:08] LABS: ALK PHOS 87 U/L (45-117)
[2017-07-28 21:22] LABS: ANISOCYTOSIS 1+; PLATELET ESTIMATE ADEQUATE
[2017-07-28 21:31] LABS: POTASSIUM 4.4 mmol/L (3.5-5.1); SGOT/AST 21 U/L (15-37)
[2017-07-28 23:22] LABS: URINE APPEARANCE CLOUDY; URINE BILIRUBIN NEGATIVE (<2.0 mg/dL); URINE BLOOD NEGATIVE (NEGATIVE); URINE COLOR YELLOW; URINE GLUCOSE (UA) NEGATIVE (NEGATIVE); URINE KETONE 2+ (NEGATIVE); URINE LEUK ESTERASE NEGATIVE (NEGATIVE); URINE NITRITE NEGATIVE (NEGATIVE); URINE PROTEIN NEGATIVE (NEGATIVE); URINE UROBILINOGEN NEGATIVE mg/dL (0.2-1.0)
[2017-07-28 23:23] LABS: HCG,QUALITATIVE URINE NEGATIVE
[2017-07-29] MEDS ORDERED: morphine CARPU-JECT 4 MG/1 ML DISP.SYRIN IVPUSH ONE ×4 (00:46→09:28)
[2017-07-29] MEDS ORDERED: morphine SULFATE 4 MG/ML VIAL ONE ×3 (00:47→06:04)
[2017-07-29] MEDS ORDERED: SODIUM CHLORIDE 1,000 ML IV STA (02:36)
--- NOTE | 2017-07-29 03:55 | HP ---
CHIEF COMPLAINT: abd pain HISTORY OF PRESENT ILLNESS: 32 y/o F w/PMH of avascular necrosis of L hip, gastritis presents to the ER with c/o diffuse abd pain that started yesterday all of a sudden. The pain was sharp and 10/10 in intensity. She states she can't pinpoint where it starts and where it moves to in the abdomen. She states this is the first time she's had pain like this. She denies any changes in her diet and she has eaten at the same places as her boyfriend and he is asymptomatic. She states she had a normal bowel movement yesterday. She states she took 1 percocet yesterday for pain relief which helped somewhat. She also has had nausea and has vomited 10 times since yesterday and had very little blood in the vomit the last few times. She also endorses some dizziness. She also reports chest pressure along with her abd pain that started yesterday. She denies fevers, chills, diaphoresis , recent travel, sob, cough, dyusria, blood in urine. She currently states she still has pain and only feels somewhat better despite getting morphine 4mg x3 in ER. ER course was notable for: (1) morphine 4mg x3, NS 3L (2) CT abd/pelvis (3) Recent Travel: denies PAST MEDICAL HISTORY:avascular necrosis of L hip, gastritis PAST SURGICAL HISTORY: L hip replacement ~2 years ago Social History: Smoking: denies Alcohol: denies Drugs: denies Family History: mother: cholecystectomy Allergies aspirin Adverse Reaction (Verified 07/28/17 18:37) HOME MEDICATIONS: Home Medications Medication Instructions Recorded Gabapentin 300 mg PO TID PRN #21 capsule 09/05/16 Ondansetron [Zofran Odt -] 4 mg SL BID PRN #14 od.tablet 12/16/16 Oxycodone HCl 10 mg PO Q6H PRN MDD 4 12/16/16 REVIEW OF SYSTEMS CONSTITUTIONAL: Absent: fever, chills CARDIOVASCULAR: +chest pressure RESPIRATORY: Absent: cough, shortness of breath GASTROINTESTINAL: +abd pain, nausea, vomiting Absent: diarrhea, constipation, melena, hematochezia GENITOURINARY: Absent: dysuria, hematuria NEUROLOGIC: Absent: headache, PHYSICAL EXAMINATION Vital Signs - 24 hr 07/28/17 18:35 Temperature 98.2 F Pulse Rate 103 H Respiratory 17 Rate Blood Pressure 111/87 O2 Sat by Pulse 100 Oximetry (%) GENERAL: Awake, alert, and fully oriented, in no acute distress. Anxious at times during interview. HEAD: Normal with no signs of trauma. EYES: extraocular movements intact, sclera anicteric, conjunctiva clear. EARS, NOSE, THROAT: Ears normal, nares patent, Moist mucous membranes. LUNGS: Breath sounds equal, clear to auscultation bilaterally. No wheezes, and no crackles. No accessory muscle use. HEART: tachycardic, normal S1 and S2 ABDOMEN: soft, tender to palpation in RUQ, LUQ, LLQ. Not tender in RLQ. [place] signs positive. No tenderness in McBurneys's point. Obturator sign +. No rebound tenderness. LOWER EXTREMITIES: 2+ pulses, warm, well-perfused. No peripheral edema. NEUROLOGICAL: Normal speech. Gait not observed. PSYCHIATRIC: Cooperative. Good eye contact. Appropriate mood and affect. SKIN: Warm, dry Laboratory Results - last 24 hr 07/28/17 07/28/17 07/28/17 20:20 20:20 21:00 WBC 21.4 H D RBC 4.79 Hgb 14.5 Hct 43.1 MCV 89.9 MCH 30.2 MCHC 33.6 RDW 13.8 Plt Count 346 MPV 9.1 D Total Counted 100 Neutrophils % No Result Required. Neutrophils % (Manual) 78.0 Band Neutrophils % 1.0 Lymphocytes % No Result Required. Lymphocytes % (Manual) 4.0 L Monocytes % (Manual) 17 H* Platelet Estimate Adequate Anisocytosis 1+ Sodium 138 Potassium 4.4 Chloride 106 Carbon Dioxide 22 Anion Gap 10 BUN 9 Creatinine 0.6 Creat Clearance w eGFR > 60 Random Glucose 99 Calcium 9.3 Total Bilirubin 0.5 AST 21 ALT 30 Alkaline Phosphatase 87 Total Protein 7.8 Albumin 3.8 Lipase 74 Serum , Qual Negative Urine Color Urine Appearance Urine pH Ur Specific [place] Urine Protein Urine Glucose (UA) Urine Ketones Urine Blood Urine Nitrite Urine Bilirubin Urine Urobilinogen Ur Leukocyte Esterase Urine HCG, Qual 07/28/17 23:00 WBC RBC Hgb Hct MCV MCH MCHC RDW Plt Count MPV Total Counted Neutrophils % Neutrophils % (Manual) Band Neutrophils % Lymphocytes % Lymphocytes % (Manual) Monocytes % (Manual) Platelet Estimate Anisocytosis Sodium Potassium Chloride Carbon Dioxide Anion Gap BUN Creatinine Creat Clearance w eGFR Random Glucose Calcium Total Bilirubin AST ALT Alkaline Phosphatase Total Protein Albumin Lipase Serum , Qual Urine Color Yellow Urine Appearance Cloudy Urine pH 5.0 Ur Specific [place] 1.018 Urine Protein Negative Urine Glucose (UA) Negative Urine Ketones 2+ H Urine Blood Negative Urine Nitrite Negative Urine Bilirubin Negative Urine Urobilinogen Negative Ur Leukocyte Esterase Negative Urine HCG, Qual Negative Imaging: CT abd/pelvis: pending official read. Active Medications Heparin Sodium (Porcine) (Heparin -) 5,000 unit SQ Q8H-IV EVELYNE Sodium Chloride (Normal Saline -) 1,000 mls @ 100 mls/hr IV ASDIR EVELYNE Ciprofloxacin/Dextrose (Cipro 400 Mg Premix Ivpb (Restricted To Id)) 400 mg in 200 mls @ 200 mls/hr IVPB ONCE ONE Stop: 07/29/17 04:58 Morphine Sulfate (Morphine Injection -) 2 mg IVPUSH Q4H PRN PRN Reason: PAIN LEVEL 6-10 Ondansetron HCl (Zofran Injection) 4 mg IVPUSH Q6H PRN PRN Reason: NAUSEA Polyethylene Glycol (Miralax (For Daily Use) -) 17 gm PO TID [facility] ASSESSMENT/PLAN: 32 y/o F w/PMH of avascular necrosis of L hip, gastritis presents to the ER with c/o diffuse abd pain w/elevated WBC count. Admitted for further investigation. -Intractable abd pain -f/u official CT abd/pelvis read -cyst seen and remarked on prelim read, if pain likely from cyst consider video game technician consult -pain control with morphine 2mg iv q4h prn -NS @ 100 ml/hr -NPO -will give miralax TID -consider rectal suppository vs enema if unable to move bowels -will start on cipro and flagyl at this time in case of infectious etiology especially considering elevated WBC count -f/u EKG -zofran prn for nausea -L hip avascular necrosis s/p L hip replacement -c/w gapapentin 300 mg tid when able to tolerate po -DVT ppx -heparin 5000 units sq q8h -FEN -NS @ 100ml/hr -monitor electrolytes -NPO -Dispo: m/s Visit type - Emergency Visit Emergency Visit: Yes ED Registration Date: 07/29/17 Care time: The patient presented to the Emergency Department on the above date and was hospitalized for further evaluation of their emergent condition. - New Patient This patient is new to me today: Yes Date on this admission: 07/29/17 - Critical Care Critical Care patient: No Hospitalist Screening - Colonoscopy Questionnaire Colonoscopy Questionnaire: Colonoscopy Questionnaire - Patient: 50 - 75 years old and never had a screening colonoscopy: Unknown History of colon or rectal polyps, or CA: Unknown History of IBD, Crohn's disease or UC: Unknown History of abdominal radiation therapy as a child: Unknown - Relative: 1 with colon or rectal CA, or polyps at age 60 or younger: Unknown Colon or rectal CA diagnosed at age 45 or younger: Unknown Multiple relatives with colon or rectal CA: Unknown - Outcome: Screening Result: Negative Screen
[2017-07-29] MEDS ORDERED: ONDANSETRON 4 MG/2 ML VIAL IVPUSH PRN (03:57)
[2017-07-29] MEDS ORDERED: SODIUM CHLORIDE 1,000 ML IV SCH (04:00)
[2017-07-29] MEDS ORDERED: HEPARIN NA (PORCINE) 5,000 UNITS/ML 1ML VIAL ONE (06:04)
[2017-07-29] MEDS ORDERED: ONDANSETRON 4 MG/2 ML VIAL ONE (06:05)
[2017-07-29] MEDS: HEPARIN NA (PORCINE) 5,000 UNITS/ML 1ML VIAL SQ SCH ×3 (06:22→23:00)
[2017-07-29] MEDS: morphine SULFATE 4 MG/ML VIAL IVPUSH PRN ×3 (06:22→19:51)
--- NOTE | 2017-07-29 06:31 | PN ---
Teaching Attending Note Name of Resident: Laz Kumar ATTENDING PHYSICIAN STATEMENT I saw and evaluated the patient. I reviewed the resident's note and discussed the case with the resident. I agree with the resident's findings and plan as documented. SUBJECTIVE: 32F with AVN left hip presents with Nausea vomiting, abdominal pain OBJECTIVE: abd: soft, generalized abd pain, no R/G WBC 21 ASSESSMENT AND PLAN: 32F with nonfocal abd pain unclear etiology. CT demonstrates significant stool in rectal vault -IVF -miralax TID, bowel regimen treat empirically for an infectious colitis - Cipro flagyl ID eval prelim read suggests ovarial cysts, follow u pfinal read and if needed can consider REGIONAL DIRECTOR OF ADMISSIONS eval
[2017-07-29] MEDS: POLYETHYLENE GLYCOL 3350 119 GM BTL PO SCH ×3 (07:37→23:01)
--- NOTE | 2017-07-29 09:43 | HOSP ---
Subjective - Review of Symptoms Subjective: c/o diffuse abdominal pain mild relief with pain medication. states its all over but worse point is epigastric and RLQ. never had pain like this in the past but does suffer from constipation. states she often goes many days without BM. did have BM the other day with streaks of blood in it. but notes she was straining frequently. never similiar episode in the past. assoc with nausea/ vomiting/subjective fevers. denies CP, SOB, chills, melena, oral ulcers, rashes , hx of STD. negative HIV in the past. sexually active with 1 male partner only does not engage in anal intercourse never had colonoscopy family hx not notable for cancer or autoimmune disease (distant cousin with SLE) Current Medications Generic Name Dose Route Start Last Admin Trade Name Freq PRN Reason Stop Dose Admin Heparin Sodium (Porcine) 5,000 unit 07/29/17 06:00 07/29/17 06:22 Heparin - SQ 5,000 unit TID EVELYNE Administration Sodium Chloride 1,000 mls @ 100 mls/hr 07/29/17 04:00 07/29/17 05:00 Normal Saline - IV 100 mls/hr ASDIR EVELYNE Administration Metronidazole 500 mg in 100 mls @ 100 mls/hr 07/29/17 09:00 Flagyl 500mg Premixed Ivpb - IVPB Q6H-IV EVELYNE Levofloxacin 500 mg in 100 mls @ 100 mls/hr 07/29/17 09:28 Levaquin 500 Mg Premixed Ivpb - IVPB 07/29/17 10:27 ONCE ONE Morphine Sulfate 2 mg 07/29/17 03:55 07/29/17 06:22 Morphine Sulfate IVPUSH 2 mg Q4H PRN Administration PAIN LEVEL 6-10 Morphine Sulfate 2 mg 07/29/17 09:28 Morphine Injection - IVPUSH 07/29/17 09:29 ONCE ONE Ondansetron HCl 4 mg 07/29/17 03:57 07/29/17 06:22 Zofran Injection IVPUSH 4 mg Q6H PRN Administration NAUSEA Polyethylene Glycol 17 gm 07/29/17 06:00 07/29/17 07:37 Miralax (For Daily Use) - PO 17 gm TID EVELYNE Administration Last Vital Signs Temp Pulse Resp BP Pulse Ox 98.2 F 103 H 17 111/87 95 07/28/17 18:35 07/28/17 18:35 07/28/17 18:35 07/28/17 18:35 07/29/17 06:25 general mild distress due to pain CV S1 S2 tachy Lungs CTA B/L no wheezing/rales/rhonchi Abdomen diffuse tenderness soft ND obese extremities no pedal edema Rectal +external hemorrhoid. no stool in rectal vault. good rectal tone. no BRBPR or melena CBCD WBC 21.4 K/mm3 (4.0-10.0) H D 07/28/17 20:20 RBC 4.79 M/mm3 (3.60-5.2) 07/28/17 20:20 Hgb 14.5 GM/dL (10.7-15.3) 07/28/17 20:20 Hct 43.1 % (32.4-45.2) 07/28/17 20:20 MCV 89.9 fl (80-96) 07/28/17 20:20 MCHC 33.6 g/dl (32.0-36.0) 07/28/17 20:20 RDW 13.8 % (11.6-15.6) 07/28/17 20:20 Plt Count 346 K/MM3 (134-434) 07/28/17 20:20 MPV 9.1 fl (7.5-11.1) D 07/28/17 20:20 CMP Sodium 138 mmol/L (136-145) 07/28/17 20:20 Potassium 4.4 mmol/L (3.5-5.1) 07/28/17 20:20 Chloride 106 mmol/L (98-107) 07/28/17 20:20 Carbon Dioxide 22 mmol/L (21-32) 07/28/17 20:20 Anion Gap 10 (8-16) 07/28/17 20:20 BUN 9 mg/dL (7-18) 07/28/17 20:20 Creatinine 0.6 mg/dL (0.55-1.02) 07/28/17 20:20 Creat Clearance w eGFR > 60 (>60) 07/28/17 20:20 Calcium 9.3 mg/dL (8.5-10.1) 07/28/17 20:20 Total Bilirubin 0.5 mg/dL (0.2-1.0) 07/28/17 20:20 AST 21 U/L (15-37) 07/28/17 20:20 ALT 30 U/L (12-78) 07/28/17 20:20 Alkaline Phosphatase 87 U/L (45-117) 07/28/17 20:20 Total Protein 7.8 g/dl (6.4-8.2) 07/28/17 20:20 Albumin 3.8 g/dl (3.4-5.0) 07/28/17 20:20 A/P 32 yo F with AVN of L hip s/p THR due to trauma presenting to the ER with diffuse abdominal pain 1. Sepsis due to proctitis- awaiting official CT report but on my read pt is noted to have significant stool with in the sigmoid-rectum with inflammation along the rectum. cont NPO, may have small sips of water, IVF, Levaquin/flagyl day 2. start on stool softeners and miralax. ID consulted. will require colonoscopy in 6-8 weeks to further evaluate cause of chronic constipation. check FOBT, HIV. low suspicion for IBD 2. AVN of L hip s/p THR. due to trauma 3. DVT ppx- hep sq 4. spoke with boyfriend present at bedside. updated on results and plan. verbalized understanding and agreement Physical Examination Vital Signs: Vital Signs Temperature 98.2 F 07/28/17 18:35 Pulse Rate 103 H 07/28/17 18:35 Respiratory Rate 17 07/28/17 18:35 Blood Pressure 111/87 07/28/17 18:35 O2 Sat by Pulse Oximetry (%) 95 07/29/17 06:25 Labs: CBC, BMP 07/28/17 20:20 07/28/17 20:20
[2017-07-29] MEDS ORDERED: morphine SULFATE 4 MG/ML VIAL IVPUSH ONE (10:00)
[2017-07-29] MEDS: SODIUM CHLORIDE 1,000 ML IV SCH (10:12)
[2017-07-29] MEDS ORDERED: PT OWN MED DRAWER 7, Y5N ONE (13:22)
--- NOTE | 2017-07-29 14:56 | PN ---
Progress Note (short form) - Note Progress Note: ID consult dictated imp/reccd 32 year old female with osteoporosis?- history of left hip AVN, s/p hilp replacement 2 years ago, also multiple vertebral compression fractures admitted with midepigastric pain and vomiting last night no fevers or chills noted to have WBC of 21k vomiting has stopped, no diarrhea continues to have midepigastric pain prilim ct scan reading no colitis, free fluid , normal appendix normal gallbladder arthroplasty left hip, fhronic fracture right inferior pubic ramus, multiple chronic compression fractures leukocytosis- ?reactive to nausea and vomiting ct scan no colitis would d/c antibiotics persistent midepigastric pain-?gastritis repeat labs in am consider gi eval if pain persists awaiting official ct scan reading Problem List - Problems (1) Abdominal pain Code(s): R10.9 - UNSPECIFIED ABDOMINAL PAIN Qualifiers: Abdominal location: unspecified location Qualified Code(s): R10.9 - Unspecified abdominal pain (2) Leukocytosis Code(s): D72.829 - ELEVATED WHITE BLOOD CELL COUNT, UNSPECIFIED
[2017-07-29] MEDS ORDERED: PANTOPRAZOLE SODIUM 40 MG VIAL IVPUSH SCH (15:30)
--- NOTE | 2017-07-29 16:01 | CONS ---
INFECTIOUS DISEASE CONSULTATION DATE OF CONSULTATION: DATE OF DICTATION: 07/29/2017 Requested by the hospitalist service. This is a 32-year-old woman who presented to the emergency room yesterday with complaints of abdominal pain. She took some Tylenol in the afternoon, the pain worsened, and she came to the emergency room. She had several episodes of nausea and vomiting and she has no fever or chills. She had no diarrhea or dysuria. She had a CAT scan of her abdomen and pelvis done in the emergency room that was notable for a right corpus luteum ovary. There was no bowel obstruction, colitis, free fluid, or free air with a normal appendix. Unremarkable pancreas, kidneys, and gallbladder on her preliminary CAT scan reading. Her vomiting has resolved. She is able to ambulate to the bathroom and back. She has had no fevers or chills. There has been no travel. Her past medical history is notable for avascular necrosis of the left hip, as well as gastritis, and she has had a left hip replacement about 2 years ago. Her boyfriend states that she had a severe fall once, after which she fractured the hip. She also has multiple compression fractures that she is aware of in her back. Her family history is notable for cholecystectomy in her mother. She is allergic to ASPIRIN. Her medications as an outpatient include Lyrica, oxycodone, and Zofran. SOCIAL HISTORY: She lives with her boyfriend. She is sexually active with one male partner only. There is no history of STDs in the past. She has been HIV negative in the past, as well. PHYSICAL EXAMINATION: General: She is awake, and alert, in no acute distress. Vital signs: Temperature is 98.2, pulse of 103, blood pressure 111/87, respiratory rate is 17. She is saturating 95% on room air. HEENT: She is normocephalic. Her eyes are anicteric. Neck: Supple. Lungs: Clear to auscultation. Heart: Regular rate and rhythm. Abdomen: Soft. She has bowel sounds. She has midepigastric discomfort to deep palpation. She does not have any pain elsewhere. Extremities: Without edema. Labs are notable for a white count of 21.4 from last night, hemoglobin 14.5, platelets at 346. BUN and creatinine are 9 and 0.6. LFTs are normal and urinalysis is negative. test is negative. HIV testing was done and is negative, as well. Preliminary CAT scan findings are as stated. Official CAT scan readings are pending. In summary, this is a 32-year-old woman with a leukocytosis. I suspect reactive to nausea, vomiting. CAT scan showed no colitis. Would stop her antibiotics. She received Levaquin and Flagyl today. Persistent midepigastric pain. She does have a history of gastritis. Would repeat her labs in the morning and consider GI evaluation if the pain persists. As well, if she has leukocytosis, she will need further workup. BRANDIE MADERA M.D. [id number]
[2017-07-29 16:24] VITALS: BMI 29.8
[2017-07-29] MEDS ORDERED: MINERAL OIL/PETROLAT/WATER TOPICAL CREAM 113 GM JAR TP SCH ×2 (17:00→17:06)
[2017-07-29] MEDS ORDERED: SENNOSIDES 8.6MG TABLET (FP) PO SCH (22:00)
[2017-07-30] MEDS: morphine SULFATE 4 MG/ML VIAL IVPUSH PRN ×3 (00:04→08:20)
[2017-07-30] MEDS: SODIUM CHLORIDE 1,000 ML IV SCH ×2 (06:29→11:31)
[2017-07-30] MEDS: POLYETHYLENE GLYCOL 3350 119 GM BTL PO SCH ×3 (06:29→14:25)
[2017-07-30] MEDS: HEPARIN NA (PORCINE) 5,000 UNITS/ML 1ML VIAL SQ SCH ×2 (06:29→14:25)
[2017-07-30 08:31] LABS: BASO % 0.3 % (0-2.0); EOS % 1.6 % (0-4.5); HEMATOCRIT 33.5 % (32.4-45.2); HEMOGLOBIN 11.4 GM/dL (10.7-15.3); MCH 30.6 pg (25.7-33.7); MCHC 34.2 g/dl (32.0-36.0); MEAN CELL VOLUME 89.6 fl (80-96); MONO % 8.7 % (3.8-10.2); NEUT % 51.4 % (42.8-82.8); PLATELET COUNT 274 K/MM3 (134-434); RBC 3.74 M/mm3 (3.60-5.2); RDW 13.4 % (11.6-15.6); WHITE BLOOD COUNT 8.3 K/mm3 (4.0-10.0)
--- NOTE | 2017-07-30 09:48 | PN ---
Physical Exam: SUBJECTIVE: Patient seen and examined OBJECTIVE: Vital Signs Period Temp Pulse Resp BP Sys/[place] Pulse Ox Last 24 Hr 98.1 F-98.4 F 92-99 18-20 97-114/32-73 100-100 GENERAL: The patient is awake, alert, and fully oriented, in no acute distress. HEAD: Normal with no signs of trauma. EYES: PERRL, extraocular movements intact, sclera anicteric, conjunctiva clear. No ptosis. ENT: Ears normal, nares patent, oropharynx clear without exudates, moist mucous membranes. NECK: Trachea midline, full range of motion, supple. LUNGS: Breath sounds equal, clear to auscultation bilaterally, no wheezes, no crackles, no accessory muscle use. HEART: Regular rate and rhythm, S1, S2 without murmur, rub or gallop. ABDOMEN: Soft, nontender, nondistended, normoactive bowel sounds, no guarding, no rebound, no hepatosplenomegaly, no masses. EXTREMITIES: 2+ pulses, warm, well-perfused, no edema. NEUROLOGICAL: Cranial nerves II through XII grossly intact. Normal speech, gait not observed. PSYCH: Normal mood, normal affect. SKIN: Warm, dry, normal turgor, no rashes or lesions noted Laboratory Results - last 24 hr 07/29/17 07/29/17 07/30/17 09:30 09:45 06:30 WBC 8.3 D RBC 3.74 D Hgb 11.4 D Hct 33.5 D MCV 89.6 MCH 30.6 MCHC 34.2 RDW 13.4 Plt Count 274 D MPV 9.0 Neutrophils % 51.4 D Lymphocytes % 38.0 D Monocytes % 8.7 Eosinophils % 1.6 D Basophils % 0.3 Stool Occult Blood Negative HIV 1&2 Antibody Screen Negative HIV P24 Antigen Negative Active Medications Generic Name Dose Route Start Last Admin Trade Name Freq PRN Reason Stop Dose Admin Heparin Sodium (Porcine) 5,000 unit 07/29/17 06:00 07/30/17 06:29 Heparin - SQ 5,000 unit TID EVELYNE Administration Sodium Chloride 1,000 mls @ 125 mls/hr 07/29/17 09:43 07/30/17 06:29 Normal Saline - IV 125 mls/hr ASDIR EVELYNE Administration Morphine Sulfate 2 mg 07/29/17 03:55 07/30/17 08:20 Morphine Sulfate IVPUSH 2 mg Q4H PRN Administration PAIN LEVEL 6-10 Multi-Ingredient Lotion 1 applic 07/29/17 17:06 Eucerin (Small Jar) - TP DAILY EVELYNE Ondansetron HCl 4 mg 07/29/17 03:57 07/29/17 06:22 Zofran Injection IVPUSH 4 mg Q6H PRN Administration NAUSEA Pantoprazole Sodium 40 mg 07/30/17 10:00 Protonix - PO DAILY EVELYNE Polyethylene Glycol 17 gm 07/29/17 06:00 07/30/17 07:49 Miralax (For Daily Use) - PO 17 gm TID EVELYNE Administration Senna 2 tab 07/29/17 22:00 07/29/17 23:00 Senna - PO 2 tab HS EVELYNE Administration ASSESSMENT/PLAN:
[2017-07-30] MEDS ORDERED: PANTOPRAZOLE 40 MG TABLET (FP) PO SCH (10:00)
[2017-07-30 11:08] LABS: CHLORIDE 107 mmol/L (98-107); POTASSIUM 3.7 mmol/L (3.5-5.1); SODIUM 140 mmol/L (136-145)
[2017-07-30] MEDS ORDERED: morphine SULFATE 4 MG/ML VIAL IVPUSH PRN (11:42)
[2017-07-30 11:44] LABS: ALBUMIN 2.9 g/dl (3.4-5.0); ALK PHOS 59 U/L (45-117); ANION GAP 13 (8-16); BILIRUBIN,TOTAL 0.5 mg/dL (0.2-1.0); BLOOD UREA NITROGEN 5 mg/dL (7-18); CO2 20 mmol/L (21-32); CREATININE 0.4 mg/dL (0.55-1.02); GLUCOSE,RANDOM 72 mg/dL (74-106); MAGNESIUM 1.6 mg/dL (1.8-2.4); SGOT/AST 10 U/L (15-37); SGPT/ALT 15 U/L (12-78); TOT PROT 5.8 g/dl (6.4-8.2)
--- NOTE | 2017-07-30 13:48 | PN ---
Teaching Attending Note Name of Resident: Quin Sharpe ATTENDING PHYSICIAN STATEMENT I saw and evaluated the patient. I reviewed the resident's note and discussed the case with the resident. I agree with the resident's findings and plan as documented. SUBJECTIVE:c/o diffuse pain. improved with pain medications. tolerating liquid diet and requesting regular food. denies Cp, SOB, fever, chills, N/V/C/D. 1 loose BM today OBJECTIVE: Last Vital Signs Temp Pulse Resp BP Pulse Ox 98.3 F 78 20 96/62 97 07/30/17 10:00 07/30/17 10:00 07/30/17 10:00 07/30/17 10:07/30/17 09:00 General NAD Abdomen soft, +epigastric pain. normoactive BS, states tenderness all over but no pain or guarding when pressing hard with stethoscope ASSESSMENT AND PLAN: 32 yo F with trauma to L hip s/p THR due to trauma presenting to the ER with diffuse abdominal pain 1. Abdominal pain- no signs of colitis seen on CT scan. leukocytosis resolved. unlikely infectious. Abx d/c. diet advacne to liquids and tolerating however using morphine RTC. claims to have tenderness on exam however when distracted during exam or using stethoscope no flinching or c/o pain. likely gastritis. was going to monitor overnight but due to personal reasons would like to go home. will trial regular food, if tolerated will do 2 week PPI trial. and should follow up with GI as outpatient. 2. trauma to L hip s/p THR. due to trauma- on standing percocet at home. counseled on risks of narcotic use including constipation. should take fiber as needed to ensure daily BM 3. DVT ppx- hep sq 4. spoke with boyfriend present at bedside.verbalized understanding and agreement. possible d/c later today
[2017-07-30] MEDS ORDERED: ACETAMINOPHEN 325 MG TABLET (FP) PO ONE (16:15)
[2017-07-30] MEDS ORDERED: oxyCODONE HCL 5 MG TABLET PO ONE (16:15)
[2017-07-30 17:11] VITALS: BP 114/77; PULSE 89; TEMP 99.1
--- NOTE | 2017-07-30 18:57 | DS ---
Physical Exam: SUBJECTIVE: Patient seen and examined OBJECTIVE: Vital Signs Period Temp Pulse Resp BP Sys/[place] Pulse Ox Last 24 Hr 98.1 F-99.1 F 78-97 20-20 96-114/59-77 97-100 PHYSICAL EXAM GENERAL: The patient is awake, alert, and fully oriented, in no acute distress. HEAD: Normal with no signs of trauma. EYES: PERRL, extraocular movements intact, sclera anicteric, conjunctiva clear. ENT: Ears normal, nares patent, oropharynx clear without exudates, moist mucous membranes. NECK: Trachea midline, full range of motion, supple. LUNGS: Breath sounds equal, clear to auscultation bilaterally, no wheezes, no crackles, no accessory muscle use. HEART: Regular rate and rhythm, S1, S2 without murmur, rub or gallop. ABDOMEN: Soft, nontender, nondistended, normoactive bowel sounds, no guarding, no rebound, no hepatosplenomegaly, no masses. EXTREMITIES: 2+ pulses, warm, well-perfused, no edema. NEUROLOGICAL: Cranial nerves II through XII grossly intact. Normal speech, gait not observed. PSYCH: Normal mood, normal affect. SKIN: Warm, dry, normal turgor, no rashes or lesions noted. LABS Laboratory Results - last 24 hr 07/30/17 07/30/17 06:30 06:30 WBC 8.3 D RBC 3.74 D Hgb 11.4 D Hct 33.5 D MCV 89.6 MCH 30.6 MCHC 34.2 RDW 13.4 Plt Count 274 D MPV 9.0 Neutrophils % 51.4 D Lymphocytes % 38.0 D Monocytes % 8.7 Eosinophils % 1.6 D Basophils % 0.3 Sodium 140 Potassium 3.7 Chloride 107 Carbon Dioxide 20 L Anion Gap 13 BUN 5 L Creatinine 0.4 L Creat Clearance w eGFR > 60 Random Glucose 72 L Calcium 8.0 L Magnesium 1.6 L Total Bilirubin 0.5 AST 10 L ALT 15 Alkaline Phosphatase 59 Troponin I < 0.02 Total Protein 5.8 L Albumin 2.9 L HOSPITAL COURSE: Date of Admission:07/29/17 Date of Discharge: 07/30/17 Discharge Summary Reason For Visit: ABD PAIN, Current Active Problems Abdominal pain (Acute) Leukocytosis (Acute) Condition: Stable - Instructions Diet, Activity, Other Instructions: You were admitted to the hospital for nausea, vomiting, and abdominal pain. You were treated with fluids, bowel rest, and pain medications. Recommendations: -You can return to your regular daily activities as tolerated. Keep a regular healthy diet with high fiber. Medications: Continue taking your regular home medications with the following additions: -Take Protonix 40mg once per day for two weeks. -Take Miralax/Metamucil as needed so that you have one bowel movement per day. Follow-ups: -Make an appointment to see Dr. Horner, a stomach doctor, in 1-2 weeks to discuss your abdominal pain. You may need to have a EGD. Follow up with your primary care doctor in 1 week. If you do not have one information on a doctor in the area has been provided. Please return to the Emergency Room if you have worsening abdominal pain, continued nausea or vomiting, unable to keep down foods or liquids, or any new or concerning symptoms. Referrals: Benja Milian MD [Staff Physician] - Tray Horner MD [Staff Physician] - Disposition: HOME - Home Medications Comprehensive Discharge Medication List: Ambulatory Orders Ondansetron [Zofran Odt -] 4 mg SL BID PRN #14 od.tablet 12/16/16 Oxycodone HCl 10 mg PO Q6H PRN MDD 4 12/16/16 Pregabalin [Lyrica] 200 mg PO DAILY 07/29/17 Pregabalin [Lyrica] 300 mg PO HS 07/29/17 Pantoprazole Sodium [Protonix -] 40 mg PO DAILY #14 tablet.ec 07/30/17 Polyethylene Glycol 3350 [Miralax 119 gm Btl -] 17 gm PO TID bottle 07/30/17 Sennosides [Senna -] 2 tab PO HS tablet 07/30/17
--- NOTE | 2017-07-30 21:43 | EKG ---
Test Reason : Blood Pressure : / mmHG Vent. Rate : 101 BPM Atrial Rate : 101 BPM P-R Int : 168 ms QRS Dur : 076 ms QT Int : 372 ms P-R-T Axes : 027 013 -05 degrees QTc Int : 482 ms SINUS TACHYCARDIA NONSPECIFIC T WAVE ABNORMALITY ABNORMAL ECG WHEN COMPARED WITH ECG OF 05-SEP-2016 11:18, NO SIGNIFICANT CHANGE WAS FOUND Confirmed by JORGE LR MD ([id number]) on 07/30/2017 9:43:50 PM Referred By: Confirmed By:JORGE LR MD
--- NOTE | 2017-08-02 10:10 | EKG ---
Test Reason : Blood Pressure : / mmHG Vent. Rate : 062 BPM Atrial Rate : 062 BPM P-R Int : 182 ms QRS Dur : 096 ms QT Int : 404 ms P-R-T Axes : 078 074 066 degrees QTc Int : 410 ms NORMAL SINUS RHYTHM POSSIBLE LEFT ATRIAL ENLARGEMENT BORDERLINE ECG WHEN COMPARED WITH ECG OF 29-JUL-2017 04:11, VENT. RATE HAS DECREASED BY 39 BPM QUESTIONABLE CHANGE IN QRS AXIS T WAVE INVERSION NO LONGER EVIDENT IN INFERIOR LEADS T WAVE INVERSION LESS EVIDENT IN ANTEROLATERAL LEADS QT HAS SHORTENED Confirmed by JANET RAYGOZA, MELISA ([id number]) on 08/02/2017 10:09:59 AM Referred By: Confirmed By:MELISA GONZALES MD
== END 2017-07-30 19:29 | disposition home or self-care (01) | DRG 254 ==
LOC: JER 18:19 → JERBED 07-29 03:14 → J8W 07-29 08:46
PROVIDERS: ADMIT Internal Medicine; ATTEND Internal Medicine
DX: K62.89 Other specified diseases of anus and rectum (principal); R10.31 Right lower quadrant pain; K29.70 Gastritis, unspecified, without bleeding; D72.829 Elevated white blood cell count, unspecified; R11.2 Nausea with vomiting, unspecified; Z96.642 Presence of left artificial hip joint
CPT/HCPCS: 36415; 74177-TC; 80048; 80053; 81003; 82272; 83690; 83735; 84484; 84703; 85025; 87389; 93005; 93010; 99285-25; J1644; J7030

== ENCOUNTER 2019-03-08 15:47 | Emergency (ER) | payer OTHER ==
[2019-03-08 15:57] VITALS: BP 116/80; PULSE 113; TEMP 98; BMI 25.4
--- NOTE | 2019-03-08 15:57 | PDOC ---
Rapid Medical Evaluation Time Seen by Provider: 03/08/19 15:51 Medical Evaluation: Allergies Allergy/AdvReac Type Severity Reaction Status Date / Time aspirin AdvReac Verified 03/08/19 15:51 03/08/19 15:54 Pt c/o: left hip pain radiating to leg x 2-3 weeks, hs hip replacement in 2012 due to osteporosis, pt states leg feels heavy, pt made appt with pain mx but not until the and wants something for pain since she ran out of oxycodone Pt on brief exam: ambulatory with can, able to perform straight leg raise Pt ordered for: none Pt proceed to the ED Discharge Disposition - Diagnosis Left hip pain - Discharge Dispostion Disposition: HOME Condition at time of disposition: Good - Prescriptions Prescriptions: Oxycodone HCl/Acetaminophen [Percocet 5-325 mg Tablet] 1 tab PO Q6H #20 tablet MDD 4 doses - Referrals - Patient Instructions Additional Instructions: Take medication as prescribed and follow-up with your pain doctor at already scheduled appointment - Post Discharge Activity
--- NOTE | 2019-03-08 16:51 | PDOC ---
History of Present Illness - General Chief Complaint: Pain Stated Complaint: LF LEG/HIP PAIN/HEADACHE Time Seen by Provider: 03/08/19 15:51 History Source: Patient - History of Present Illness Occurred: reports: other Lower Extremity Pain Location: left: hip Past History - Past Medical History Allergies/Adverse Reactions: Allergies Allergy/AdvReac Type Severity Reaction Status Date / Time aspirin AdvReac Verified 03/08/19 15:51 Home Medications: Ambulatory Orders Oxycodone HCl/Acetaminophen [Percocet 5-325 mg Tablet] 1 tab PO Q6H #20 tablet MDD 4 doses 03/08/19 Pregabalin 1 tab PO BID 03/08/19 COPD: No DVT: No Dementia: No GI Disorders: Yes (NAUSEA AND VOMITING,CONSTIPATION) - Surgical History Orthopedic Surgery: Yes (LEFT HIP SURGERY) - Immunization History Immunization Up to Date: Yes - Psycho Social/Smoking Cessation Hx Smoking History: Never smoked Have you smoked in the past 12 months: No Hx Alcohol Use: No Drug/Substance Use Hx: No Substance Use Type: None Hx Substance Use Treatment: No Review of Systems - Review of Systems Constitutional: No: Chills, Fever Musculoskeletal: Yes: Joint Pain. No: Joint Swelling Neurological: No: Numbness, Tingling, Weakness *Physical Exam - Vital Signs Last Vital Signs Temp Pulse Resp BP Pulse Ox 98 F 113 H 16 116/80 98 03/08/19 15:53 03/08/19 15:53 03/08/19 15:53 03/08/19 15:53 03/08/19 15:53 - Physical Exam General Appearance: Yes: Appropriately Dressed. No: Apparent Distress HEENT: positive: Normal Voice Neck: positive: Supple Respiratory/Chest: positive: Lungs Clear, Normal Breath Sounds. negative: Respiratory Distress Cardiovascular: positive: Regular Rate, S1, S2 Extremity: positive: Normal Inspection. negative: Tender, Swelling Integumentary: positive: Dry, Warm Neurologic: positive: Fully Oriented, Alert, Normal Mood/Affect Medical Decision Making - Medical Decision Making 03/08/19 16:31 34-year-old female history of osteoporosis, avascular necrosis of L hip, s/p multiple surgeries (2012, 2015) in hospital in the [place] (does not remember which one), follows up with pain management and currently on oxycodone and lyrica but states she ran out of her oxycodone and that insurance no longer covers her lyrica, here for pain control. No f/c. Pt well jua nfrancisco, tachy to 113 at triage, 86 on rpt. Dc w/ pain control. Has upcoming pain appt Discharge - Discharge Information Problems reviewed: Yes Clinical Impression/Diagnosis: Left hip pain Condition: Good Disposition: HOME - Additional Discharge Information Prescriptions: Oxycodone HCl/Acetaminophen [Percocet 5-325 mg Tablet] 1 tab PO Q6H #20 tablet MDD 4 doses - Follow up/Referral - Patient Discharge Instructions Additional Instructions: Take medication as prescribed and follow-up with your pain doctor at already scheduled appointment - Post Discharge Activity
== END 2019-03-08 16:52 | disposition home or self-care (01) ==
LOC: JERFT 15:47
DX: M25.552 Pain in left hip (principal); Z96.642 Presence of left artificial hip joint; Z87.39 Personal history of other diseases of the musculoskeletal system and connective tissue; Z88.6 Allergy status to analgesic agent
CPT/HCPCS: 99281-25

== ENCOUNTER 2019-12-11 13:50 | Inpatient (IN) | payer OTHER ==
[2019-12-11] MEDS ORDERED: ONDANSETRON 4 MG/2 ML VIAL IVPUSH ONE (14:47)
[2019-12-11] MEDS ORDERED: SODIUM CHLORIDE 0.9% 500 ML INFUS.BAG IV ONE (14:47)
--- NOTE | 2019-12-11 14:53 | PDOC ---
History of Present Illness - General Chief Complaint: Pain Stated Complaint: LWR ABD PAIN/HEADACHE/VOMITING Time Seen by Provider: 12/11/19 14:19 History Source: Patient Exam Limitations: No Limitations - History of Present Illness Initial Comments: 12/11/19 14:48 34-year-old female history of avascular necrosis of left hip, osteoporosis, renal stones, uterine fibroids, ovarian cyst presents complaining of midepigastric and periumbilical pain since yesterday with nausea, chills and vomiting. Had approximately 4 episodes of nonbloody vomiting yesterday and 2 episodes today. Denies diarrhea, back pain, chest pain, shortness of breath, fever, urinary complaints, known sick contacts or travel. Patient has not taking anything for pain today. Usual meds are Lyrica and omeprazole. LMP 5 months ago, states she followed up with PMD 1.5 months ago was told she is not and advised to follow-up with [facility]. Patient has [facility] appointment scheduled for December 29, 2019. , 1 miscarriage 8 years ago. Patient able to tolerate water. ROS: as above PE: GENERAL: Appears minimally uncomfortable HEAD: NCAT EYES: Pupils equal, round and reactive to light, sclera anicteric, conjunctiva clear ENT: pharynx: no erythema, no exudate, uvula midline NECK: supple, no lymphadenopathy CHEST: nontender RESP: clear, no w/r/r CARDIO: rrr, no m/g/r ABD: +BS, soft, minimal tenderness to midepigastric and periumbilical area BACK: no midline spinal ttp, no CVAT EXTREMITIES: Normal range of motion, no edema NEUROLOGICAL: Normal speech, normal gait SKIN: Warm, Dry 12/11/19 14:53 Is this a multiple visit Asthma Patient?: No Past History - Medical History Allergies/Adverse Reactions: Allergies Allergy/AdvReac Type Severity Reaction Status Date / Time aspirin AdvReac Verified 12/11/19 14:04 Home Medications: Ambulatory Orders Pregabalin 1 tab PO BID 03/08/19 COPD: No DVT: No Dementia: No GI Disorders: Yes (NAUSEA AND VOMITING,CONSTIPATION) - Surgical History Orthopedic Surgery: Yes (LEFT HIP SURGERY) - Reproductive History Is Patient Now?: No - Immunization History Immunization Up to Date: Yes - Psycho-Social/Smoking History Smoking History: Never smoked Have you smoked in the past 12 months: No Information on smoking cessation initiated: No - Substance Abuse Hx (Audit-C & DAST Scrn) How often the patient has a drink containing alcohol: Never Score: In Men: 4 or > Positive; In Women: 3 or > Positive: 0 Screen Result (Pos requires Nsg. Audit-10AR): Negative In the last yr the pt used illegal drug/Rx for NonMed reason: No Score: Yes response is considered Positive: 0 Screen Result (Positive result requires Nsg. DAST-10): Negative *Physical Exam - Vital Signs Last Vital Signs Temp Pulse Resp BP Pulse Ox 97.9 F 79 17 105/77 100 12/11/19 14:05 12/11/19 14:05 12/11/19 14:05 12/11/19 14:05 12/11/19 14:05 ED Treatment Course - LABORATORY CBC & Chemistry Diagram: 12/11/19 15:00 12/11/19 15:00 - RADIOLOGY Radiology Studies Ordered: Category Date Time Status ABDOMEN & PELVIS CT WITH CONTR [CT] Stat CT Scan 12/11/19 14:46 Ordered CHEST PA & LAT [RAD] Stat Radiology 12/11/19 14:45 Ordered Medical Decision Making - Medical Decision Making 12/11/19 14:52 34-year-old female history of avascular necrosis of left hip, osteoporosis, renal stones, uterine fibroids, ovarian cyst presents complaining of midepigastric and periumbilical pain since yesterday with nausea, chills and vom iting. Had approximately 4 episodes of nonbloody vomiting yesterday and 2 episodes today. Denies diarrhea, back pain, chest pain, shortness of breath, fever, urinary complaints, known sick contacts or travel. Patient has not taking anything for pain today. Usual meds are Lyrica and omeprazole. LMP 5 months ago, states she followed up with PMD 1.5 months ago was told she is not and advised to follow-up with [facility]. Patient has [facility] appointment scheduled for December 29, 2019. , 1 miscarriage 8 years ago. Patient able to tolerate water. Urine Labs, UA, urine culture Chest x-ray, EKG CTAP w/con IV fluids Antiemetic Reassess 12/11/19 15:35 ecg: HR 93, nsr, no st or tw changes Added beta hCG to current lab draw Patient awaiting CTAP w/con Reassess signed out to ISHAN Dickinson Discharge - Discharge Information Problems reviewed: Yes Clinical Impression/Diagnosis: Abdominal pain Qualifiers: Abdominal location: upper abdomen, unspecified Qualified Code(s): R10.10 - Upper abdominal pain, unspecified Condition: Stable Disposition: HOME - Follow up/Referral Referrals: Vania Patricia MD [Primary Care Provider] - - Patient Discharge Instructions - Post Discharge Activity
[2019-12-11 15:36] LABS: BASO % 0.3 % (0-2.0); EOS % 1.3 % (0-4.5); HEMATOCRIT 39.1 % (32.4-45.2); LYMPH % 27.8 % (8-40); MCH 29.7 pg (25.7-33.7); MCHC 33.2 g/dl (32.0-36.0); MEAN CELL VOLUME 89.6 fl (80-96); MEAN PLT VOLUME 8.6 fl (7.5-11.1); MONO % 6.6 % (3.8-10.2); PLATELET COUNT 359 K/MM3 (134-434); RBC 4.36 M/mm3 (3.60-5.2); RDW 13.7 % (11.6-15.6); WHITE BLOOD COUNT 8.7 K/mm3 (4.0-10.0)
[2019-12-11 15:45] LABS: INR 0.98 (0.83-1.09); PROTHROMBIN TIME (PATIENT) 11.6 SEC (9.7-13.0)
--- NOTE | 2019-12-11 15:58 | EKG ---
Test Reason : Blood Pressure : / mmHG Vent. Rate : 093 BPM Atrial Rate : 093 BPM P-R Int : 148 ms QRS Dur : 076 ms QT Int : 372 ms P-R-T Axes : 024 010 000 degrees QTc Int : 462 ms NORMAL SINUS RHYTHM MINIMAL VOLTAGE CRITERIA FOR LVH, MAY BE NORMAL VARIANT BORDERLINE ECG WHEN COMPARED WITH ECG OF 29-JUL-2017 04:30, VENT. RATE HAS INCREASED BY 31 BPM QUESTIONABLE CHANGE IN QRS AXIS NON-SPECIFIC CHANGE IN ST SEGMENT IN INFERIOR LEADS T WAVE INVERSION NOW EVIDENT IN INFERIOR LEADS NONSPECIFIC T WAVE ABNORMALITY NOW EVIDENT IN LATERAL LEADS QT HAS LENGTHENED Confirmed by Nj Hammer ([id number]) on 12/11/2019 3:58:36 PM Referred By: Confirmed By:Nj Hammer
[2019-12-11 16:09] LABS: ALBUMIN 3.4 g/dl (3.4-5.0); ALK PHOS 72 U/L (45-117); ANION GAP 7 MMOL/L (8-16); BILIRUBIN,TOTAL 0.4 mg/dL (0.2-1); BLOOD UREA NITROGEN 7.9 mg/dL (7-18); CALCIUM 9.1 mg/dL (8.5-10.1); CHLORIDE 106 mmol/L (98-107); CO2 27 mmol/L (21-32); CREATININE 0.7 mg/dL (0.55-1.3); GLUCOSE,RANDOM 102 mg/dL (74-106); LIPASE 59 U/L (73-393); POTASSIUM 4.3 mmol/L (3.5-5.1); SGOT/AST 14 U/L (15-37); SGPT/ALT 16 U/L (13-61); SODIUM 139 mmol/L (136-145)
--- NOTE | 2019-12-11 18:36 | PDOC ---
*Physical Exam - Vital Signs Last Vital Signs Temp Pulse Resp BP Pulse Ox 97.9 F 79 17 105/77 99 12/11/19 14:05 12/11/19 14:05 12/11/19 14:05 12/11/19 14:05 12/11/19 16:07 - Physical Exam 12/11/19 18:30 Gen: AAOx 3, no acute distress, comfortable, no signs of respiratory distress HENT: atraumatic, normocephalic with no laceration or contusion. Nasal mucosa without erythema. Oropharynx without erythema or exudates. Mucous membranes moist. EYES: PERRL, EOM intact, conjunctiva pink NECK: supple; trachea midline; no JVD, no lymphadenopathy, or thyromegaly CV: RRR no murmurs, gallops, or rubs. CHEST: CTA b/l no wheezing, rales or rhonchi ABD: +BS/ND. diffusely TTP throughout abdomen with voluntary guarding no rebound; EXTREMITY: no cyanosis or erythema. 2+ dorsalis pedis, posterior tibial, and radial pulse. No pedal edema; no calf swelling or tenderness SKIN: no rash, warm and dry, no diaphoresis HEME: no purpura or ecchymosis NEURO: normal speech, CN II-XII intact, sensation intact, normal gait, no cerebellar deficits MS: 5/5 strength in all extremities, FROM intact in all extremities. ED Treatment Course - LABORATORY CBC & Chemistry Diagram: 12/11/19 15:00 12/11/19 15:00 - ADDITIONAL ORDERS Additional order review: Laboratory Results 12/11/19 12/11/19 15:00 15:00 PT with INR 11.60 INR 0.98 PTT (Actin FS) 30.0 Sodium 139 Potassium 4.3 Chloride 106 Carbon Dioxide 27 Anion Gap 7 L BUN 7.9 Creatinine 0.7 Est GFR (CKD-EPI)AfAm 131.94 Est GFR (CKD-EPI)NonAf 113.84 Random Glucose 102 Calcium 9.1 Total Bilirubin 0.4 AST 14 L ALT 16 Alkaline Phosphatase 72 Total Protein 7.0 Albumin 3.4 Lipase 59 L Beta HCG, Quant < 1.0 12/11/19 15:00 RBC 4.36 MCV 89.6 MCHC 33.2 RDW 13.7 MPV 8.6 Neutrophils % 64.0 D Lymphocytes % 27.8 D Monocytes % 6.6 Eosinophils % 1.3 Basophils % 0.3 - Medications Given in the ED: ED Medications Discontinued Medications Generic Name Dose Route Start Last Admin Trade Name Jane PRN Reason Stop Dose Admin Ondansetron HCl 4 mg 12/11/19 14:47 12/11/19 14:55 Zofran Injection IVPUSH 12/11/19 14:48 4 mg ONCE ONE Administration Sodium Chloride 1,000 ml 12/11/19 14:47 12/11/19 14:50 Normal Saline - IV 12/11/19 14:48 1,000 ml ONCE ONE Administration Medical Decision Making - Medical Decision Making Per previous providers Note: HPI: 34-year-old female history of avascular necrosis of left hip, osteoporosis, renal stones, uterine fibroids, ovarian cyst presents complaining of midepigastric and periumbilical pain since yesterday with nausea, chills and vomiting. Had approximately 4 episodes of nonbloody vomiting yesterday and 2 episodes today. Denies diarrhea, back pain, chest pain, shortness of breath, fever, urinary complaints, known sick contacts or travel. Patient has not taking anything for pain today. Usual meds are Lyrica and omeprazole. LMP 5 months ago, states she followed up with PMD 1.5 months ago was told she is not and advised to follow-up with [facility]. Patient has [facility] T[facility] appointment scheduled for December 29, 2019. , 1 miscarriage 8 years ago. Patient able to tolerate water. I confirmed this HPI with patient. Labs: Grossly WNL Imaging shows: EKG NSR Chest x-ray shows no acute CT abdomen pelvis significant for small bowel obstruction with possible closed- loop there is a small to moderate amount of pelvic free fluid that seems to be interval development of minimal to mild right hydronephrosis compared to 2018 follow-up with MRI suggested multiple uterine fibroids Assessment: 34 year old female with SBO, surgery consulted, pt to be admitted to medicine. 12/11/19 19:52 Surgery never returned page pt admitted Discharge - Discharge Information Problems reviewed: Yes Clinical Impression/Diagnosis: Abdominal pain Qualifiers: Abdominal location: upper abdomen, unspecified Qualified Code(s): R10.10 - Upper abdominal pain, unspecified Condition: Stable Disposition: HOME - Admission Yes - Follow up/Referral Referrals: Vania Patricia MD [Primary Care Provider] - - Patient Discharge Instructions - Post Discharge Activity
[2019-12-11] MEDS ORDERED: morphine CARPU-JECT 4 MG/1 ML DISP.SYRIN IVPUSH ONE (19:57)
[2019-12-11] MEDS ORDERED: morphine SULFATE 4 MG/ML VIAL ONE (19:59)
[2019-12-11 21:01] LABS: HCG,QUALITATIVE URINE Negative
[2019-12-11 21:08] LABS: URINE COLOR YELLOW
[2019-12-11 21:09] LABS: PH,URINE 6.5 (5.0-8.0); URINE APPEARANCE CLEAR; URINE BILIRUBIN NEGATIVE (NEGATIVE); URINE GLUCOSE (UA) NEGATIVE (NEGATIVE); URINE KETONE NEGATIVE (NEGATIVE); URINE PROTEIN NEGATIVE (NEGATIVE); URINE UROBILINOGEN 0.2 mg/dL (0.2-1.0)
[2019-12-11 21:10] LABS: URINE LEUK ESTERASE NEGATIVE (NEGATIVE); URINE NITRITE NEGATIVE (NEGATIVE)
--- NOTE | 2019-12-11 21:31 | HP ---
<Rubin Richmond - Last Filed: 12/11/19 21:31> CHIEF COMPLAINT: PCP: HISTORY OF PRESENT ILLNESS: ER course was notable for: (1) (2) (3) Recent Travel: PAST MEDICAL HISTORY: PAST SURGICAL HISTORY: Social History: Smoking: Alcohol: Drugs: Allergies aspirin Adverse Reaction (Verified 12/11/19 14:04) HOME MEDICATIONS: Home Medications Medication Instructions Recorded Pregabalin 1 tab PO BID 03/08/19 REVIEW OF SYSTEMS CONSTITUTIONAL: Absent: fever, chills, diaphoresis, generalized weakness, malaise, loss of appetite, weight change HEENT: Absent: rhinorrhea, nasal congestion, throat pain, throat swelling, difficulty swallowing, mouth swelling, ear pain, eye pain, visual changes CARDIOVASCULAR: Absent: chest pain, syncope, palpitations, irregular heart rate, lightheadedness, peripheral edema RESPIRATORY: Absent: cough, shortness of breath, dyspnea with exertion, orthopnea, wheezing, stridor, hemoptysis GASTROINTESTINAL: Absent: abdominal pain, abdominal distension, nausea, vomiting, diarrhea, constipation, melena, hematochezia GENITOURINARY: Absent: dysuria, frequency, urgency, hesitancy, hematuria, flank pain, genital pain MUSCULOSKELETAL: Absent: myalgia, arthralgia, joint swelling, back pain, neck pain SKIN: Absent: rash, itching, pallor HEMATOLOGIC/IMMUNOLOGIC: Absent: easy bleeding, easy bruising, lymphadenopathy, frequent infections ENDOCRINE: Absent: unexplained weight gain, unexplained weight loss, heat intolerance, cold intolerance NEUROLOGIC: Absent: headache, focal weakness or paresthesias, dizziness, unsteady gait, seizure, mental status changes, bladder or bowel incontinence PSYCHIATRIC: Absent: anxiety, depression, suicidal or homicidal ideation, hallucinations. PHYSICAL EXAMINATION Vital Signs - 24 hr 12/11/19 12/11/19 12/11/19 14:05 16:07 19:20 Temperature 97.9 F 98.6 F Pulse Rate 79 Pulse Rate [ 90 Right Radial] Respiratory 17 17 Rate Blood Pressure 105/77 Blood Pressure 117/80 [Left Arm] O2 Sat by Pulse 100 99 99 Oximetry (%) GENERAL: Awake, alert, and fully oriented, in no acute distress. HEAD: Normal with no signs of trauma. EYES: Pupils equal, round and reactive to light, extraocular movements intact, sclera anicteric, conjunctiva clear. No lid lag. EARS, NOSE, THROAT: Ears normal, nares patent, oropharynx clear without exudates. Moist mucous membranes. NECK: Normal range of motion, supple without lymphadenopathy, JVD, or masses. LUNGS: Breath sounds equal, clear to auscultation bilaterally. No wheezes, and no crackles. No accessory muscle use. HEART: Regular rate and rhythm, normal S1 and S2 without murmur, rub or gallop. ABDOMEN: Soft, nontender, not distended, normoactive bowel sounds, no guarding, no rebound, no masses. No hepatomegaly or splenomegaly. MUSCULOSKELETAL: Normal range of motion at all joints. No bony deformities or tenderness. No CVA tenderness. UPPER EXTREMITIES: 2+ pulses, warm, well-perfused. No cyanosis. No clubbing. No peripheral edema. LOWER EXTREMITIES: 2+ pulses, warm, well-perfused. No calf tenderness. No peripheral edema. NEUROLOGICAL: Cranial nerves II-XII intact. Normal speech. Normal gait. PSYCHIATRIC: Cooperative. Good eye contact. Appropriate mood and affect. SKIN: Warm, dry, normal turgor, no rashes or lesions noted, normal capillary refill. Laboratory Results - last 24 hr 12/11/19 12/11/19 12/11/19 15:00 15:00 15:00 WBC 8.7 RBC 4.36 Hgb 13.0 Hct 39.1 D MCV 89.6 MCH 29.7 MCHC 33.2 RDW 13.7 Plt Count 359 D MPV 8.6 Absolute Neuts (auto) 5.6 Neutrophils % 64.0 D Lymphocytes % 27.8 D Monocytes % 6.6 Eosinophils % 1.3 Basophils % 0.3 Nucleated RBC % 0 PT with INR 11.60 INR 0.98 PTT (Actin FS) 30.0 Sodium 139 Potassium 4.3 Chloride 106 Carbon Dioxide 27 Anion Gap 7 L BUN 7.9 Creatinine 0.7 Est GFR (CKD-EPI)AfAm 131.94 Est GFR (CKD-EPI)NonAf 113.84 Random Glucose 102 Calcium 9.1 Total Bilirubin 0.4 AST 14 L ALT 16 Alkaline Phosphatase 72 Total Protein 7.0 Albumin 3.4 Lipase 59 L Beta HCG, Quant < 1.0 Urine Color Urine Appearance Urine pH Ur Specific [place] Urine Protein Urine Glucose (UA) Urine Ketones Urine Blood Urine Nitrite Urine Bilirubin Urine Urobilinogen Ur Leukocyte Esterase Urine HCG, Qual Blood Type Antibody Screen 12/11/19 12/11/19 19:53 19:53 WBC RBC Hgb Hct MCV MCH MCHC RDW Plt Count MPV Absolute Neuts (auto) Neutrophils % Lymphocytes % Monocytes % Eosinophils % Basophils % Nucleated RBC % PT with INR INR PTT (Actin FS) Sodium Potassium Chloride Carbon Dioxide Anion Gap BUN Creatinine Est GFR (CKD-EPI)AfAm Est GFR (CKD-EPI)NonAf Random Glucose Calcium Total Bilirubin AST ALT Alkaline Phosphatase Total Protein Albumin Lipase Beta HCG, Quant Urine Color Yellow Urine Appearance Clear Urine pH 6.5 D Ur Specific [place] 1.054 H Urine Protein Negative Urine Glucose (UA) Negative Urine Ketones Negative Urine Blood Negative Urine Nitrite Negative Urine Bilirubin Negative Urine Urobilinogen 0.2 Ur Leukocyte Esterase Negative Urine HCG, Qual Negative Blood Type A POSITIVE Antibody Screen Negative ASSESSMENT/PLAN: ATTENDING PHYSICIAN STATEMENT I saw and evaluated the patient. I reviewed the resident's note and discussed the case with the resident. I agree with the resident's findings and plan as documented. SUBJECTIVE: OBJECTIVE: ASSESSMENT AND PLAN: <Tiffany Pimentel - Last Filed: 12/12/19 00:23> CHIEF COMPLAINT: PCP: HISTORY OF PRESENT ILLNESS: ER course was notable for: (1) (2) (3) Recent Travel: PAST MEDICAL HISTORY: PAST SURGICAL HISTORY: Social History: Smoking: Alcohol: Drugs: Allergies aspirin Adverse Reaction (Verified 12/11/19 14:04) HOME MEDICATIONS: Home Medications Medication Instructions Recorded Pregabalin 1 tab PO BID 03/08/19 REVIEW OF SYSTEMS CONSTITUTIONAL: Absent: fever, chills, diaphoresis, generalized weakness, malaise, loss of appetite, weight change HEENT: Absent: rhinorrhea, nasal congestion, throat pain, throat swelling, difficulty swallowing, mouth swelling, ear pain, eye pain, visual changes CARDIOVASCULAR: Absent: chest pain, syncope, palpitations, irregular heart rate, lightheadedness, peripheral edema RESPIRATORY: Absent: cough, shortness of breath, dyspnea with exertion, orthopnea, wheezing, stridor, hemoptysis GASTROINTESTINAL: Absent: abdominal pain, abdominal distension, nausea, vomiting, diarrhea, constipation, melena, hematochezia GENITOURINARY: Absent: dysuria, frequency, urgency, hesitancy, hematuria, flank pain, genital pain MUSCULOSKELETAL: Absent: myalgia, arthralgia, joint swelling, back pain, neck pain SKIN: Absent: rash, itching, pallor HEMATOLOGIC/IMMUNOLOGIC: Absent: easy bleeding, easy bruising, lymphadenopathy, frequent infections ENDOCRINE: Absent: unexplained weight gain, unexplained weight loss, heat intolerance, cold intolerance NEUROLOGIC: Absent: headache, focal weakness or paresthesias, dizziness, unsteady gait, seizure, mental status changes, bladder or bowel incontinence PSYCHIATRIC: Absent: anxiety, depression, suicidal or homicidal ideation, hallucinations. PHYSICAL EXAMINATION Vital Signs - 24 hr 12/11/19 12/11/19 12/11/19 14:05 16:07 19:20 Temperature 97.9 F 98.6 F Pulse Rate 79 Pulse Rate [ 90 Right Radial] Respiratory 17 17 Rate Blood Pressure 105/77 Blood Pressure 117/80 [Left Arm] O2 Sat by Pulse 100 99 99 Oximetry (%) 12/11/19 22:20 Temperature Pulse Rate Pulse Rate [ Right Radial] Respiratory Rate Blood Pressure Blood Pressure [Left Arm] O2 Sat by Pulse 99 Oximetry (%) GENERAL: Awake, alert, and fully oriented, in no acute distress. HEAD: Normal with no signs of trauma. EYES: Pupils equal, round and reactive to light, extraocular movements intact, sclera anicteric, conjunctiva clear. No lid lag. EARS, NOSE, THROAT: Ears normal, nares patent, oropharynx clear without exudates. Moist mucous membranes. NECK: Normal range of motion, supple without lymphadenopathy, JVD, or masses. LUNGS: Breath sounds equal, clear to auscultation bilaterally. No wheezes, and no crackles. No accessory muscle use. HEART: Regular rate and rhythm, normal S1 and S2 without murmur, rub or gallop. ABDOMEN: Soft, nontender, not distended, normoactive bowel sounds, no guarding, no rebound, no masses. No hepatomegaly or splenomegaly. MUSCULOSKELETAL: Normal range of motion at all joints. No bony deformities or tenderness. No CVA tenderness. UPPER EXTREMITIES: 2+ pulses, warm, well-perfused. No cyanosis. No clubbing. No peripheral edema. LOWER EXTREMITIES: 2+ pulses, warm, well-perfused. No calf tenderness. No peripheral edema. NEUROLOGICAL: Cranial nerves II-XII intact. Normal speech. Normal gait. PSYCHIATRIC: Cooperative. Good eye contact. Appropriate mood and affect. SKIN: Warm, dry, normal turgor, no rashes or lesions noted, normal capillary refill. Laboratory Results - last 24 hr 12/11/19 12/11/19 12/11/19 15:00 15:00 15:00 WBC 8.7 RBC 4.36 Hgb 13.0 Hct 39.1 D MCV 89.6 MCH 29.7 MCHC 33.2 RDW 13.7 Plt Count 359 D MPV 8.6 Absolute Neuts (auto) 5.6 Neutrophils % 64.0 D Lymphocytes % 27.8 D Monocytes % 6.6 Eosinophils % 1.3 Basophils % 0.3 Nucleated RBC % 0 PT with INR 11.60 INR 0.98 PTT (Actin FS) 30.0 Sodium 139 Potassium 4.3 Chloride 106 Carbon Dioxide 27 Anion Gap 7 L BUN 7.9 Creatinine 0.7 Est GFR (CKD-EPI)AfAm 131.94 Est GFR (CKD-EPI)NonAf 113.84 Random Glucose 102 Calcium 9.1 Total Bilirubin 0.4 AST 14 L ALT 16 Alkaline Phosphatase 72 Total Protein 7.0 Albumin 3.4 Lipase 59 L Beta HCG, Quant < 1.0 Urine Color Urine Appearance Urine pH Ur Specific [place] Urine Protein Urine Glucose (UA) Urine Ketones Urine Blood Urine Nitrite Urine Bilirubin Urine Urobilinogen Ur Leukocyte Esterase Urine HCG, Qual Stool Occult Blood Blood Type Antibody Screen 12/11/19 12/11/19 12/11/19 19:53 19:53 20:05 WBC RBC Hgb Hct MCV MCH MCHC RDW Plt Count MPV Absolute Neuts (auto) Neutrophils % Lymphocytes % Monocytes % Eosinophils % Basophils % Nucleated RBC % PT with INR INR PTT (Actin FS) Sodium Potassium Chloride Carbon Dioxide Anion Gap BUN Creatinine Est GFR (CKD-EPI)AfAm Est GFR (CKD-EPI)NonAf Random Glucose Calcium Total Bilirubin AST ALT Alkaline Phosphatase Total Protein Albumin Lipase Beta HCG, Quant Urine Color Yellow Urine Appearance Clear Urine pH 6.5 D Ur Specific [place] 1.054 H Urine Protein Negative Urine Glucose (UA) Negative Urine Ketones Negative Urine Blood Negative Urine Nitrite Negative Urine Bilirubin Negative Urine Urobilinogen 0.2 Ur Leukocyte Esterase Negative Urine HCG, Qual Negative Stool Occult Blood Negative Blood Type A POSITIVE Antibody Screen Negative ASSESSMENT/PLAN: Visit type - Emergency Visit Emergency Visit: Yes ED Registration Date: 12/11/19 Care time: The patient presented to the Emergency Department on the above date and was hospitalized for further evaluation of their emergent condition. - New Patient This patient is new to me today: Yes Date on this admission: 12/12/19 - Critical Care Critical Care patient: No ATTENDING PHYSICIAN STATEMENT I saw and evaluated the patient. I reviewed the resident's note and discussed the case with the resident. I agree with the resident's findings and plan as documented. SUBJECTIVE: OBJECTIVE: ASSESSMENT AND PLAN: DOS : December 11 2019 34-year-old female with a history of avascular necrosis of left hip, osteoporosis, renal stones, uterine fibroids, ovarian cyst who presents with epigastric pain x 1 day along with ammenorrhea x [address] abdomen pelvis significant for small bowel obstruction with possible closed- loop there is a small to moderate amount of pelvic free fluid that seems to be interval development of minimal to mild right hydronephrosis compared to 2018 follow-up with MRI suggested multiple uterine fibroids. PLAN # SBO- Etiology is unclear Recommend NPO, IV fluid hydration, anti-emetics/pain meds as needed Surgery consult in AM # Ammenorhea- work-up underway for secondary causes
[2019-12-11] MEDS: LACTATED RINGERS SOLUTION 1,000 ML/1,000 ML INFUS.BAG IV SCH (22:31)
[2019-12-11] MEDS ORDERED: ACETAMINOPHEN INJECTION 100 ML IVPB ONE (23:02)
[2019-12-11] MEDS: ACETAMINOPHEN 1000 MG/100 ML VIAL (NON FORMULARY) IVPB PRN (23:08)
[2019-12-12 00:42] VITALS: BMI 30.3
[2019-12-12] MEDS: LACTATED RINGERS SOLUTION 1,000 ML/1,000 ML INFUS.BAG IV SCH ×2 (00:56→12:43)
[2019-12-12] MEDS ORDERED: ONDANSETRON 4 MG/2 ML VIAL IVPB ONE (01:15)
[2019-12-12] MEDS ORDERED: MORPHINE SULFATE 2 MG/ML VIAL IVPUSH ONE ×2 (01:29→04:16)
--- NOTE | 2019-12-12 05:36 | PN ---
Physical Exam: CHIEF COMPLAINT: Mid-Epigastric/Periumbilical pain PCP: Dr. Vania Patricia HISTORY OF PRESENT ILLNESS: Pt is a 34 yo F with PMH of avascular necrosis of left hip, osteoporosis, renal stones, uterine fibroids, ovarian cyst, and in the past presenting with midepigastric and periumbilical pain since yesterday. Pain is non- radiating, burning and cramping in quality and is intermittent; 8/10 pain at its worst. Associated with nausea, chills and vomiting. Pt has had 4 episodes of bilious (non-bloody) vomiting since yesterday with only 2 additional episodes today. She is able to tolerate sips of water but nothing else. Pt had one bowel movement after the pain started but no BMs since and denies passing flatus since then. Denies hx of inflammatory bowel disease, hx of hernias, and hx of radiation to the abdomen. Pt has had a (2002) and 2 hip replacements (2012 and 2015). Pt denies fevers, chest pain, SOB, constipation, urinary changes, diarrhea, or hip pain. 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 Last pap smear 1 year ago. PAST MEDICAL HISTORY: As per HPI PAST SURGICAL HISTORY: As per HPI Family Hx None Social History: Lives at home with son. 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 Smoking: denies Alcohol: denies Drugs: denies Sexual hx not sexually active; no STIs in the past OBJECTIVE: Vital Signs Period Temp Pulse Resp BP Sys/[place] Pulse Ox Last 24 Hr 97.9 F-98.6 F 79-90 17-20 105-117/76-80 99-100 Physical Exam GENERAL: Awake, alert, and fully oriented, in no acute distress. Mild discomfort. HEAD: NCAT EYES: PERRLA, EOMI, sclera white, conjunctiva clear. EARS, NOSE, THROAT: Oropharynx clear without exudates. Moist mucous membranes. NECK: Supple without lymphadenopathy, or masses. LUNGS: Breath sounds equal, clear to auscultation bilaterally. No wheezes, and no crackles. No accessory muscle use. HEART: Regular rate and rhythm, normal S1 and S2 without murmur, rub or gallop. ABDOMEN: Soft, nontender, not distended, normoactive bowel sounds. RECTAL: no external hemorrhoids appreciated; normal rectal tone; scant stool in rectal vault; no juan jose blood appreciated; no masses or impacted stool appreciated. MUSCULOSKELETAL: Moving all extremities spontaneously and equally. UPPER EXTREMITIES: 2+ pulses, warm, well-perfused. No peripheral edema. LOWER EXTREMITIES: 2+ pulses, warm, well-perfused. No peripheral edema. NEUROLOGICAL: Cranial nerves II-XII intact. Normal speech. SKIN: Warm, dry, normal turgor, no rashes or lesions noted Laboratory Results - last 24 hr 12/11/19 12/11/19 12/11/19 15:00 15:00 15:00 WBC 8.7 RBC 4.36 Hgb 13.0 Hct 39.1 D MCV 89.6 MCH 29.7 MCHC 33.2 RDW 13.7 Plt Count 359 D MPV 8.6 Absolute Neuts (auto) 5.6 Neutrophils % 64.0 D Lymphocytes % 27.8 D Monocytes % 6.6 Eosinophils % 1.3 Basophils % 0.3 Nucleated RBC % 0 PT with INR 11.60 INR 0.98 PTT (Actin FS) 30.0 Sodium 139 Potassium 4.3 Chloride 106 Carbon Dioxide 27 Anion Gap 7 L BUN 7.9 Creatinine 0.7 Est GFR (CKD-EPI)AfAm 131.94 Est GFR (CKD-EPI)NonAf 113.84 Random Glucose 102 Calcium 9.1 Total Bilirubin 0.4 AST 14 L ALT 16 Alkaline Phosphatase 72 Total Protein 7.0 Albumin 3.4 Lipase 59 L Beta HCG, Quant < 1.0 Urine Color Urine Appearance Urine pH Ur Specific [place] Urine Protein Urine Glucose (UA) Urine Ketones Urine Blood Urine Nitrite Urine Bilirubin Urine Urobilinogen Ur Leukocyte Esterase Urine HCG, Qual Stool Occult Blood Blood Type Antibody Screen 12/11/19 12/11/19 12/11/19 19:53 19:53 20:05 WBC RBC Hgb Hct MCV MCH MCHC RDW Plt Count MPV Absolute Neuts (auto) Neutrophils % Lymphocytes % Monocytes % Eosinophils % Basophils % Nucleated RBC % PT with INR INR PTT (Actin FS) Sodium Potassium Chloride Carbon Dioxide Anion Gap BUN Creatinine Est GFR (CKD-EPI)AfAm Est GFR (CKD-EPI)NonAf Random Glucose Calcium Total Bilirubin AST ALT Alkaline Phosphatase Total Protein Albumin Lipase Beta HCG, Quant Urine Color Yellow Urine Appearance Clear Urine pH 6.5 D Ur Specific [place] 1.054 H Urine Protein Negative Urine Glucose (UA) Negative Urine Ketones Negative Urine Blood Negative Urine Nitrite Negative Urine Bilirubin Negative Urine Urobilinogen 0.2 Ur Leukocyte Esterase Negative Urine HCG, Qual Negative Stool Occult Blood Negative Blood Type A POSITIVE Antibody Screen Negative Active Medications Generic Name Dose Route Start Last Admin Trade Name Freq PRN Reason Stop Dose Admin Acetaminophen 1,000 mg 12/11/19 22:36 12/11/19 23:08 Ofirmev Injection - IVPB 12/12/19 22:36 1,000 mg Q6H PRN Administration PAIN LEVEL 6-10 Enoxaparin Sodium 40 mg 12/12/19 10:00 Lovenox - SQ DAILY EVELYNE Lactated Ringer's 1,000 ml in 1,000 mls @ 100 mls/hr 12/11/19 21:45 12/12/19 00:56 Lactated Ringers Solution IV 100 mls/hr ASDIR EVELYNE Administration Pregabalin 300 mg 12/12/19 10:00 Lyrica - PO BID EVELYNE ASSESSMENT/PLAN: Pt is a 34 yo F with PMH of avascular necrosis of left hip, osteoporosis, renal stones, uterine fibroids, ovarian cyst, and in the past being admitted for evaluation and management of an acute SBO. #Small Bowel Obstruction (possibly 2/2 to adhesions previous ) CT abdomen showing SBO with possible closed-loop, dilated and fluid filled jejunum Although a possible closed-loop is concerning, current literature indicates that clinical correlation must be done as closed loops are overcalled on radiology reports. As pt was not significantly distended and had only mild nausea upon admission, we chose to manage conservatively. Rectal exam with no rectal mass or fecal impaction appreciated; FOBT neg -NPO, bowel rest -Surgery consulted; f/u surgery recs -No NG Tube placed; indication for placement is with significant abdominal distension, nausea and vomiting. -IVF hydration with LR 100 cc/hr -pain control with IV Tylenol q6 prn; given 1 mg morphine once for break through -zofran IVPB given for nausea -monitor for worsening abdominal distension, pain, nausea/vomiting; if worsening clinical status place NG tube for decompression of SBO & contact surgery # Secondary Amenorrhea (unknown etiology) LMP 5 months ago; has had fibroids and ovarian cysts on previous TVUS -Urine test neg -Check TSH, prolactin -ObGyn consulted #Adnexal Mass Appreciated on MRI: 3.7 cmx 3.5 cm -ObGyn consulted -Most likely outpatient follow-up #Musculoskeletal Pain? Pt taking lyrica for pain but could not describe what medical condition it was for. -restarting home Lyrica 300 mg daily #DVT PPx -lovenox 40 sq daily #FEN -F LR @ 100 cc/hr -E monitor; replete prn -N NPO #Dispo: Admit to med-surg Visit type - Emergency Visit Emergency Visit: Yes ED Registration Date: 12/11/19 Care time: The patient presented to the Emergency Department on the above date and was hospitalized for further evaluation of their emergent condition. - New Patient This patient is new to me today: Yes Date on this admission: 12/12/19 - Critical Care Critical Care patient: No ATTENDING PHYSICIAN STATEMENT I saw and evaluated the patient. I reviewed the resident's note and discussed the case with the resident. I agree with the resident's findings and plan as documented. SUBJECTIVE: OBJECTIVE: ASSESSMENT AND PLAN:
--- NOTE | 2019-12-12 08:43 | CONSULT ---
Consult Consult Specialty:: RADIO TOWER TECHNICIAN Reason for Consultation:: Amenorrhea, Ovarian cyst - History of Present Illness Chief Complaint: SBO History of Present Illness: 34yo admitted with SBO, consultation for amenorrhea, ovarian cyst Reports history of mostly regular cycles, occ skipped periods. LMP 5 months ago. Recent negative test History of uterine fibroids, small History of R 3cm ovarian cyst OBGYN: in [place] - Past Medical History ...LMP: 07/21/19 ...: No - Alcohol/Substance Use Hx Alcohol Use: No - Smoking History Smoking history: Never smoked Have you smoked in the past 12 months: No Home Medications - Allergies Allergies/Adverse Reactions: Allergies Allergy/AdvReac Type Severity Reaction Status Date / Time aspirin AdvReac Verified 12/11/19 14:04 - Home Medications Home Medications: Ambulatory Orders Pregabalin 1 tab PO BID 03/08/19 Review of Systems - Review of Systems Constitutional: reports: No Symptoms Gastrointestinal: reports: Abdominal Pain, Nausea, Vomiting Physical Exam Vital Signs: Vital Signs Temperature 97.7 F 12/12/19 07:19 Pulse Rate 83 12/12/19 07:19 Respiratory Rate 20 12/12/19 07:19 Blood Pressure 108/58 L 12/12/19 07:19 O2 Sat by Pulse Oximetry (%) 99 12/12/19 07:19 Constitutional: Yes: Well Nourished, No Distress, Calm Labs: CBC, BMP 12/11/19 15:00 12/11/19 15:00 Imaging - Results Cat Scan: Report Reviewed Assessment/Plan 34yo with SBO, amenorrhea, R ovarian cyst Admitting diagnosis of SBO being managed by medicine/surgery Amenorrhea is not acute or life-threatning and can be further managed/evaluated with blood work through and likely 10 day Provera challenge which be done at the discretion of her private RADIO TOWER TECHNICIAN, with whom she has an appointment. R ovarian cyst vs possible R hydrosalpinx, can also be further monitored with either repeat sonogram in 3 months or HSG to evaluate for possible R hydrosalpinx, which is not indicated during this admission. All questions answered; pt will follow up with her RADIO TOWER TECHNICIAN, as scheduled. Davon Palmer MD
[2019-12-12 08:48] LABS: BASO % 0.3 % (0-2.0); EOS % 3.7 % (0-4.5); HEMATOCRIT 35.3 % (32.4-45.2); HEMOGLOBIN 11.7 GM/dL (10.7-15.3); LYMPH % 49.4 % (8-40); MCHC 33.2 g/dl (32.0-36.0); MEAN CELL VOLUME 90.3 fl (80-96); MEAN PLT VOLUME 8.9 fl (7.5-11.1); MONO % 7.4 % (3.8-10.2); NEUT % 39.2 % (42.8-82.8); PLATELET COUNT 298 K/MM3 (134-434); RBC 3.91 M/mm3 (3.60-5.2); RDW 13.8 % (11.6-15.6); WHITE BLOOD COUNT 6.9 K/mm3 (4.0-10.0)
[2019-12-12] MEDS: PREGABALIN 100 MG CAPSULE PO SCH ×2 (10:08→21:29)
[2019-12-12] MEDS: ACETAMINOPHEN 1000 MG/100 ML VIAL (NON FORMULARY) IVPB PRN ×2 (10:16→22:17)
[2019-12-12] MEDS: ENOXAPARIN NA (PORCINE) 40 MG/0.4 ML DISP.SYRIN SQ SCH (10:26)
[2019-12-12 10:54] LABS: ALBUMIN 2.9 g/dl (3.4-5.0); BILIRUBIN,TOTAL 0.5 mg/dL (0.2-1); BLOOD UREA NITROGEN 5.2 mg/dL (7-18); CALCIUM 8.9 mg/dL (8.5-10.1); CREATININE 0.6 mg/dL (0.55-1.3); MAGNESIUM 2.1 mg/dL (1.8-2.4); PHOSPHOROUS 3.6 mg/dL (2.5-4.9); TOT PROT 5.9 g/dl (6.4-8.2)
--- NOTE | 2019-12-12 12:40 | PN ---
Progress Note (short form) - Note Progress Note: surgery pt seen and examined earlier with full consult dictated. pt declined laparotomy earlier and wanted attempt at conservative management. plans for repeat ct with oral and iv contrast, covid testing, and ngt placement. Pt has now declined the ngt. She changed her mind during insertion. plan- ct abd with oral and iv contrast. i am concerned for closed loop obstruction or perforated appendix. pt has peritoneal findings in right lower quadrant. it is noted that she has no fever and normal wbc. hold abx. surgical team will re-eval tomorrow.
--- NOTE | 2019-12-12 13:01 | CONS ---
DATE OF CONSULTATION: 12/12/2019 REASON FOR CONSULTATION: Small bowel obstruction. This is an emergency consultation requested the emergency room physician. HISTORY OF PRESENT ILLNESS: This is a 34-year-old female who has never had surgery on her abdomen before presents with 4-day history of abdominal pain, nausea, and vomiting. She states that she last ate on Monday. Does remember what she ate. She denies diarrhea currently. She denies blood in her stools. Denies recent weight loss. She had a CAT scan of her abdomen and pelvis done without oral contrast and this showed a likely small bowel obstruction with a transition in the mid bowel. The radiologist perhaps a closed loop. The appendix was not visualized but felt it was likely appendicitis. The patient was noted to have a normal white blood cell count and had no fever. No nasogastric tube was placed. The patient was admitted overnight. She still complains of intermittent cramping pain. She last vomited last night. She has not vomited today. Her repeat white blood cell count remains normal. Now it is 6.9. She does not have a left shift. Her chemistries are unremarkable with no evidence of acidosis. There is no lactic acid or blood gas available but her carbon dioxide level on her chemistry is 27. 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 She had surgery to repair this. She also has history of kidney stones, fibroids, ovarian cysts. PAST SURGICAL HISTORY: Left hip. She has never had an abdominal surgery. SOCIAL HISTORY: Negative for alcohol. Negative for tobacco. ALLERGIES: ASPIRIN. MEDICATIONS: Pregabalin. REVIEW OF SYSTEMS: General: Denies fatigue or malaise. Cardiac: Denies chest pain. Respiratory: Denies shortness of breath. Gastrointestinal: Admits to intermittent pain that comes and goes in waves. More in her lower abdomen. Denies flatus. Currently has nausea but has not vomited since last night. She reported to the emergency room that she had chills initially as well. Genitourinary: Denies dysuria. Musculoskeletal: Admits to her hip problems. Psychiatric: Denies hearing voices. PHYSICAL EXAMINATION: General: This is an obese 34-year-old female. Clinically does not appear to be in distress. Vital Signs: She is afebrile. Her vital signs are stable. Her blood pressure is 108/58. It was 105/77 on arrival. She is not tachycardic. Her heart rate is 83. She is not on beta papa. Her respiratory rate is recorded at 20 and 17 at different times. Her O2 saturation is 99%. HEENT: Her head is normocephalic. Her sclera are anicteric. Neck: Supple. Chest: Clear. Abdomen: Soft. It is nondistended. She has significant right lower quadrant tenderness with rebound. She has perhaps a small ventral hernia. She has mild tenderness on the left side of her abdomen as well. Extremities: No edema. LABORATORY DATA: Her white blood cell count is 6.9 without a shift. Her chemistries are unremarkable. Urinalysis is unremarkable. She is not . Her imaging in [facility] in addition they note a small amount of ascites. ASSESSMENT: A 34-year-old female who presents with several days of abdominal pain, nausea, vomiting, possible chills. She has no diarrhea. She has a virgin abdomen clinically. I am concerned that she could potentially have a ruptured appendicitis or a high-grade bowel obstruction from internal hernia with possible compromise. She does have peritoneal findings in the right lower quadrant, although her vital signs, overall appearance, and laboratory do not support either of these diagnoses. Because of this, however, I have offered the patient exploratory surgery and she declines. She states that she is currently not ready for an operation and wishes to see if this improves with time. She understands that she could have a compromised bowel that could end up requiring a resection or worsening sepsis. At this point I will repeat the CAT scan with oral and IV contrast. The first CAT scan was suboptimal without oral contrast. Also, we will place a nasogastric tube as this is standard care treatment for small bowel obstruction and the patient currently is agreeable, although perhaps she will change her mind once the insertion occurs. After nasogastric tube is placed and she has a small period of time of suction, oral contrast can then be placed through the NG tube and we can wait 3 hours and get a better study to better evaluate if there is a high-grade small bowel obstruction and also to hopefully evaluate her appendix which was not visualized on the first study. I am also concerned that we do not have a current COVID status. I have sent that. Unfortunately, if she were to have the COVID virus, any surgery could trigger respiratory failure and lead to thromboembolic complications, even . The patient is also concerned about and would like to know her COVID status prior to considering any surgery as well. At this point we will again continue current plan, nasogastric tube decompression, repeat CAT scan with oral and IV contrast. I will intentionally withhold antibiotics in order to not mask any symptoms of a possible appendicitis. I would expect, however, if she has a ruptured appendix that she would develop fever at some point. Currently she has no fever and a normal white blood cell count. The patient is agreeable with the plan. She understands the plan. She has demonstrated her understanding by asking me several questions and at this point she does not wish to proceed with exploratory surgery today. I will follow the patient closely with you. DO CARITO MINAYA/[id number] MTDD
--- NOTE | 2019-12-12 14:57 | PN ---
Teaching Attending Note Name of Resident: Jerry Jordan ATTENDING PHYSICIAN STATEMENT I saw and evaluated the patient. I reviewed the resident's note and discussed the case with the resident. I agree with the resident's findings and plan as documented. SUBJECTIVE: Pt feels ok, still has pain OBJECTIVE: Vital Signs Period Temp Pulse Resp BP Sys/Bingham Pulse Ox Last 24 Hr 97.6 F-98.6 F 80-90 17-20 108-117/58-80 99-100 GENERAL: Awake, alert, and fully oriented, in no acute distress. HEAD: Normal with no signs of trauma. EYES: Pupils equal, round and reactive to light, extraocular movements intact, sclera anicteric, conjunctiva clear. No lid lag. EARS, NOSE, THROAT: Ears normal, nares patent, oropharynx clear without exudates. Moist mucous membranes. NECK: Normal range of motion, supple without lymphadenopathy, JVD, or masses. LUNGS: Breath sounds equal, clear to auscultation bilaterally. No wheezes, and no crackles. No accessory muscle use. HEART: Regular rate and rhythm, normal S1 and S2 without murmur, rub or gallop. ABDOMEN: Soft, tender in mid epigastric region, BS+, No Rebound tenderness MUSCULOSKELETAL: Normal range of motion at all joints. No bony deformities or tenderness. No CVA tenderness. UPPER EXTREMITIES: 2+ pulses, warm, well-perfused. No cyanosis. No clubbing. Cap refill <2 seconds. No peripheral edema. LOWER EXTREMITIES: 2+ pulses, warm, well-perfused. No calf tenderness. No peripheral edema. NEUROLOGICAL: Cranial nerves II-XII intact. Normal speech. Normal gait. PSYCHIATRIC: Cooperative. Good eye contact. Appropriate mood and affect. SKIN: Warm, dry, normal turgor, no rashes or lesions noted. ASSESSMENT AND PLAN: 34 y/o F with Hx of Avascular necrosis, osteoporosis, renal stone, uterine fibroids, C Section who presents with SBO SBO: Continue NPO IV Fluids Hold on NG tube for decompression as per Sx Pt does not have a surgical abdomen at this time, continue to monitor physical exam Continue pain control Rest of plan as per resident note
[2019-12-12] MEDS ORDERED: HYDROmorphone HCl 2 MG/ML VIAL IVPB ONE (15:41)
[2019-12-12] MEDS ORDERED: ONDANSETRON 4 MG/2 ML VIAL IVPUSH ONE (15:42)
--- NOTE | 2019-12-12 19:57 | PN ---
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 Marisela #[id number]. She said that when she first came to the hospital, her pain was worse than a 10 an now her pain is 8/10. She points to the region above her umbilicus and said that the pain comes and goes. She has never experienced this type of pain before. She denied currently feeling nauseated. OBJECTIVE: Vital Signs Period Temp Pulse Resp BP Sys/Bingham Pulse Ox Last 24 Hr 97.6 F-98.6 F 80-91 17-20 106-117/58-80 99-100 GENERAL: female, overweight, appears slightly younger than stated age, AAO x3, no signs of acute distress but appears uncomfortable HEAD: Normal with no signs of trauma EYES: PERRL, direct and consensual reflex intact LUNGS: CTAB, no wheezing appreciated HEART: RRR, clear S1 S2 appreciated, no murmurs ABDOMEN: Soft, nondistended, hypoactive bowel sounds, mild pain on palpation of R upper and lower quadrants, no rebound tenderness EXTREMITIES: 2+ pulses in all extremities bilaterally, warm to touch, no peripheral edema NEUROLOGICAL: Cranial nerves II through XII grossly intact. Normal speech PSYCH: Normal mood, normal affect. SKIN: Warm, no rashes or lesions noted Laboratory Results - last 24 hr 12/11/19 12/11/19 12/11/19 19:53 19:53 20:05 WBC RBC Hgb Hct MCV MCH MCHC RDW Plt Count MPV Absolute Neuts (auto) Neutrophils % Lymphocytes % Monocytes % Eosinophils % Basophils % Nucleated RBC % Sodium Potassium Chloride Carbon Dioxide Anion Gap BUN Creatinine Est GFR (CKD-EPI)AfAm Est GFR (CKD-EPI)NonAf Random Glucose Calcium Phosphorus Magnesium Total Bilirubin AST ALT Alkaline Phosphatase Total Protein Albumin TSH Urine Color Yellow Urine Appearance Clear Urine pH 6.5 D Ur Specific [place] 1.054 H Urine Protein Negative Urine Glucose (UA) Negative Urine Ketones Negative Urine Blood Negative Urine Nitrite Negative Urine Bilirubin Negative Urine Urobilinogen 0.2 Ur Leukocyte Esterase Negative Urine HCG, Qual Negative Stool Occult Blood Negative Blood Type A POSITIVE Antibody Screen Negative 12/12/19 12/12/19 08:15 08:15 WBC 6.9 RBC 3.91 Hgb 11.7 Hct 35.3 MCV 90.3 MCH 30.0 MCHC 33.2 RDW 13.8 Plt Count 298 MPV 8.9 Absolute Neuts (auto) 2.7 Neutrophils % 39.2 L D Lymphocytes % 49.4 H D Monocytes % 7.4 Eosinophils % 3.7 D Basophils % 0.3 Nucleated RBC % 0 Sodium 142 Potassium 4.0 Chloride 108 H Carbon Dioxide 30 Anion Gap 5 L BUN 5.2 L Creatinine 0.6 Est GFR (CKD-EPI)AfAm 138.80 Est GFR (CKD-EPI)NonAf 119.76 Random Glucose 76 Calcium 8.9 Phosphorus 3.6 Magnesium 2.1 Total Bilirubin 0.5 AST 9 L ALT 12 L Alkaline Phosphatase 63 Total Protein 5.9 L Albumin 2.9 L TSH 0.73 Urine Color Urine Appearance Urine pH Ur Specific [place] Urine Protein Urine Glucose (UA) Urine Ketones Urine Blood Urine Nitrite Urine Bilirubin Urine Urobilinogen Ur Leukocyte Esterase Urine HCG, Qual Stool Occult Blood Blood Type Antibody Screen Active Medications Generic Name Dose Route Start Last Admin Trade Name Freq PRN Reason Stop Dose Admin Acetaminophen 1,000 mg 12/11/19 22:36 12/12/19 10:16 Ofirmev Injection - IVPB 12/12/19 22:36 1,000 mg Q6H PRN Administration PAIN LEVEL 6-10 Enoxaparin Sodium 40 mg 12/12/19 10:00 12/12/19 10:26 Lovenox - SQ 40 mg DAILY EVELYNE Administration Lactated Ringer's 1,000 ml in 1,000 mls @ 100 mls/hr 12/11/19 21:45 12/12/19 12:43 Lactated Ringers Solution IV 100 mls/hr ASDIR EVELYNE Administration Pregabalin 300 mg 12/12/19 10:00 12/12/19 10:08 Lyrica - PO 300 mg BID EVELYNE Administration ASSESSMENT/PLAN: 34yo F with PMHx PMHx of avascular necrosis of left hip (?unclear reason), osteoporosis, renal stones, uterine fibroids, ovarian cyst, and 2012 who presented with 10/[address] of the abdomen showed small bowel obstruction (possibly closed loop), small-moderate amount of pelvic free fluid, adnexal tubular structure, several uterine leiomyomas, and mild subcutaneous soft tissue stranding (postprocedural). CXR showed no acute chest pathology, and EKG was overall unremarkable. Patient remained afebrile without leukocytosis, and patient was admitted for management of small bowel obstruction. #Small Bowel Obstruction (possibly 2/2 to adhesions previous ) CT abdomen remarkable for SBO Currently managed conservatively as patient does not have a surgical abdomen FOBT neg patient is afebrile, without leukocytosis - surgery consulted - appreciate recs: *patient refused laparotomy and prefers conservative management *patient refused NG tube placement during attempted insertion *repeat abdominal CT with oral and IV contrast *concerned for closed loop obstruction or perforated appendix as patient showing peritoneal signs in RLQ - pain management: Ofirmev 1g IVPB Q6H PRN, gave dilaudid 1mg IVPB once for breakthrough pain - important to monitor VS and look for symptoms of surgical abdomen such as increasing distension, pain, NV, rigidity, rebound tenderness - lactate ordered - f/u - continue bowel rest - NPO - continue IVF #Non-acute Gynecological Issues: Secondary Amenorrhea (unknown etiology), R ovarian cyst vs possible R hydrosalpinx, leiomyomas - Urine test neg - TSH WNL - prolactin pending - ObGyn consulted - appreciated recs: *further management at discretion of private Key Bed Installer (blood work, 10 day Provera challenge, 3 month repeat sonogram) #Musculoskeletal Pain? Pt taking lyrica for pain but could not describe what medical condition it was for - continue home Lyrica 300 mg daily #DVT PPx - lovenox 40 sq daily #FEN -F LR @ 100 cc/hr -E monitor; replete prn -N NPO #Dispo: Admit to med-surg Visit type - Emergency Visit Emergency Visit: Yes ED Registration Date: 12/11/19 Care time: The patient presented to the Emergency Department on the above date and was hospitalized for further evaluation of their emergent condition. - New Patient This patient is new to me today: Yes Date on this admission: 12/12/19 - Critical Care Critical Care patient: No ATTENDING PHYSICIAN STATEMENT I saw and evaluated the patient. I reviewed the resident's note and discussed the case with the resident. I agree with the resident's findings and plan as documented. SUBJECTIVE: OBJECTIVE: ASSESSMENT AND PLAN:
--- NOTE | 2019-12-12 20:10 | PN ---
Progress Note (short form) - Note Progress Note: surgery repeat ct with oral contrast shows resolution of original sbo. no appendicitis. still fluid in pelvis. doubt this was an sbo since causes of sbo in virgin abd rarely resolved with conservative mgmt. most likely ob gyn physician assistant pathology leading to localized ileus that has now resolves. no fever despite being off abx. recommend liquid diet in am. if tolerates than no surgical contraindication to discharge. suspect pain in ob gyn physician assistant in nature.
[2019-12-13] MEDS ORDERED: MORPHINE SULFATE 2 MG/ML VIAL IVPUSH ONE ×4 (00:25→21:34)
[2019-12-13] MEDS: LACTATED RINGERS SOLUTION 1,000 ML/1,000 ML INFUS.BAG IV SCH ×4 (01:49→21:47)
[2019-12-13 07:45] LABS: BASO % 0.2 % (0-2.0); EOS % 1.8 % (0-4.5); HEMATOCRIT 35.3 % (32.4-45.2); HEMOGLOBIN 11.8 GM/dL (10.7-15.3); MCH 29.6 pg (25.7-33.7); MCHC 33.3 g/dl (32.0-36.0); MEAN CELL VOLUME 88.9 fl (80-96); MEAN PLT VOLUME 8.6 fl (7.5-11.1); MONO % 6.3 % (3.8-10.2); NEUT % 58.7 % (42.8-82.8); PLATELET COUNT 319 K/MM3 (134-434); RBC 3.97 M/mm3 (3.60-5.2); RDW 13.2 % (11.6-15.6)
[2019-12-13 08:17] LABS: ALBUMIN 3.2 g/dl (3.4-5.0); BILIRUBIN,TOTAL 0.7 mg/dL (0.2-1); BLOOD UREA NITROGEN 8.9 mg/dL (7-18); CALCIUM 8.9 mg/dL (8.5-10.1); CREATININE 0.6 mg/dL (0.55-1.3); MAGNESIUM 1.9 mg/dL (1.8-2.4); PHOSPHOROUS 3.7 mg/dL (2.5-4.9); TOT PROT 6.4 g/dl (6.4-8.2)
[2019-12-13] MEDS ORDERED: ONDANSETRON 4 MG/2 ML VIAL IVPUSH ONE ×2 (09:18→21:34)
[2019-12-13] MEDS: ENOXAPARIN NA (PORCINE) 40 MG/0.4 ML DISP.SYRIN SQ SCH (09:25)
[2019-12-13] MEDS: PREGABALIN 100 MG CAPSULE PO SCH ×2 (10:54→21:22)
[2019-12-13 12:16] LABS: ARTERIAL BLD GAS O2 SATURATION 97.3 mmHg (95-98); ARTERIAL BLOOD GAS BASE EXCESS -7.8 mmol/L (-2-2); ARTERIAL BLOOD GAS PO2 101.6 mmHg (80-100); ARTERIAL BLOOD GAS pH 7.325 (7.350-7.450)
[2019-12-13 12:18] LABS: ALLENS TEST POSITIVE
--- NOTE | 2019-12-13 15:11 | PN ---
Teaching Attending Note Name of Resident: Jerry Jordan ATTENDING PHYSICIAN STATEMENT I saw and evaluated the patient. I reviewed the resident's note and discussed the case with the resident. I agree with the resident's findings and plan as documented. SUBJECTIVE: Patient still with abdominal pain OBJECTIVE: Vital Signs Period Temp Pulse Resp BP Sys/Bingham Pulse Ox Last 24 Hr 98.0 F-98.5 F 80-91 20-20 104-114/52-75 96-100 GENERAL: Awake, alert, and fully oriented, in no acute distress. HEAD: Normal with no signs of trauma. EYES: Pupils equal, round and reactive to light, extraocular movements intact, sclera anicteric, conjunctiva clear. No lid lag. EARS, NOSE, THROAT: Ears normal, nares patent, oropharynx clear without exudates. Moist mucous membranes. NECK: Normal range of motion, supple without lymphadenopathy, JVD, or masses. LUNGS: Breath sounds equal, clear to auscultation bilaterally. No wheezes, and no crackles. No accessory muscle use. HEART: Regular rate and rhythm, normal S1 and S2 without murmur, rub or gallop. ABDOMEN: Soft, tender to palpation, no rebound tenderness MUSCULOSKELETAL: Normal range of motion at all joints. No bony deformities or tenderness. No CVA tenderness. UPPER EXTREMITIES: 2+ pulses, warm, well-perfused. No cyanosis. No clubbing. Cap refill <2 seconds. No peripheral edema. LOWER EXTREMITIES: 2+ pulses, warm, well-perfused. No calf tenderness; tender over L brandt NEUROLOGICAL: Cranial nerves II-XII intact. Normal speech. Normal gait. PSYCHIATRIC: Cooperative. Good eye contact. Appropriate mood and affect. SKIN: Warm, dry, normal turgor, no rashes or lesions noted. ASSESSMENT AND PLAN: 34 y/o F with Hx of Avascular necrosis, osteoporosis, renal stone, uterine fibroids, C Section who presents with SBO SBO: Repeat CT appears improved Will attempt to advance diet patient still has pain in her abdomen at this time continue IV fluids No surgical intervention indicated at htis time Anion Gap metabolic acidosis Lactic Acid wnl, no signs of acute infarction/ischemia likley due to ketoacidosis in setting of strict NPO Continue to monitor
--- NOTE | 2019-12-13 18:15 | PN ---
Physical Exam: SUBJECTIVE: Patient seen and examined at bedside. The patient reports diffuse abdominal pain worse in the epigastric region on palpation. The patient also has mild nausea. The patent denies fever/chills. She still has not had a bowel movement. She is unable to drink due to the pain. OBJECTIVE: Vital Signs Period Temp Pulse Resp BP Sys/Bingham Pulse Ox Last 24 Hr 98.0 F-98.5 F 80-90 20-20 104-112/52-70 96-100 GENERAL: The patient is awake, alert, and fully oriented, in no acute distress. HEAD: Normal with no signs of trauma. EYES: Extraocular movements intact. No ptosis. ENT: Ears normal, nares patent, oropharynx clear without exudates, moist mucous membranes. NECK: Trachea midline, full range of motion, supple. LUNGS: Breath sounds equal, clear to auscultation bilaterally, no wheezes, no crackles, no accessory muscle use. HEART: Regular rate and rhythm, S1, S2 without murmur, rub or gallop. ABDOMEN: Soft, tender to palpation especially in epigastric region, RUQ and LUQ but otherwise diffusely tender, nondistended, hyperactive bowel sounds, no guarding, no masses. EXTREMITIES: 2+ pulses bilaterally, warm, well-perfused, no edema. Left leg slightly weaker than right leg but still +5/5 muscle strength in hip flexion, hip abduction, hip adduction, foot dorsiflexion, foot plantarflexion, toe dorsiflexion, and toe plantarflexion. Pain on palpation especially of foot. NEUROLOGICAL: Normal speech, gait not observed. PSYCH: Normal mood, normal affect. SKIN: Warm, dry, normal turgor, no rashes or lesions noted Laboratory Results - last 24 hr 12/12/19 12/12/19 12/12/19 08:15 10:15 20:45 WBC RBC Hgb Hct MCV MCH MCHC RDW Plt Count MPV Absolute Neuts (auto) Neutrophils % Lymphocytes % Monocytes % Eosinophils % Basophils % Nucleated RBC % Anticoagulation Therapy Puncture Site Patient Temperature ABG pH ABG pCO2 ABG pO2 ABG HCO3 ABG O2 Sat (Measured) ABG O2 Content ABG Base Excess Lucho Test Patient On Oxygen O2 Delivery Device Oxygen Flow Rate Vent Mode Vent Rate Mechanical Rate PEEP Pressure Support Vent Sodium Potassium Chloride Carbon Dioxide Anion Gap BUN Creatinine Est GFR (CKD-EPI)AfAm Est GFR (CKD-EPI)NonAf Random Glucose Lactic Acid 1.0 Calcium Phosphorus Magnesium Total Bilirubin AST ALT Alkaline Phosphatase Total Protein Albumin Prolactin 36.9 H COVID-19 (DAVEY) Not detected 12/13/19 12/13/19 12/13/19 07:23 07:23 10:36 WBC 9.0 RBC 3.97 Hgb 11.8 Hct 35.3 MCV 88.9 MCH 29.6 MCHC 33.3 RDW 13.2 Plt Count 319 MPV 8.6 Absolute Neuts (auto) 5.3 Neutrophils % 58.7 D Lymphocytes % 33.0 D Monocytes % 6.3 Eosinophils % 1.8 Basophils % 0.2 Nucleated RBC % 0 Anticoagulation Therapy Puncture Site Patient Temperature ABG pH ABG pCO2 ABG pO2 ABG HCO3 ABG O2 Sat (Measured) ABG O2 Content ABG Base Excess Lucho Test Patient On Oxygen O2 Delivery Device Oxygen Flow Rate Vent Mode Vent Rate Mechanical Rate PEEP Pressure Support Vent Sodium 141 Potassium 4.0 Chloride 105 Carbon Dioxide 22 Anion Gap 14 BUN 8.9 Creatinine 0.6 Est GFR (CKD-EPI)AfAm 138.80 Est GFR (CKD-EPI)NonAf 119.76 Random Glucose 53 L Lactic Acid 1.8 Calcium 8.9 Phosphorus 3.7 Magnesium 1.9 Total Bilirubin 0.7 AST 12 L ALT 15 Alkaline Phosphatase 63 Total Protein 6.4 Albumin 3.2 L Prolactin COVID-19 (DAVEY) 12/13/19 11:40 WBC RBC Hgb Hct MCV MCH MCHC RDW Plt Count MPV Absolute Neuts (auto) Neutrophils % Lymphocytes % Monocytes % Eosinophils % Basophils % Nucleated RBC % Anticoagulation Therapy No Result Required. Puncture Site Left radial Patient Temperature No Result Required. ABG pH 7.325 L ABG pCO2 33.40 L ABG pO2 101.6 H ABG HCO3 17.0 L ABG O2 Sat (Measured) 97.3 ABG O2 Content No Result Required. ABG Base Excess -7.8 L Lucho Test Positive Patient On Oxygen No Result Required. O2 Delivery Device No Result Required. Oxygen Flow Rate 21 Vent Mode No Result Required. Vent Rate No Result Required. Mechanical Rate No Result Required. PEEP No Result Required. Pressure Support Vent No Result Required. Sodium Potassium Chloride Carbon Dioxide Anion Gap BUN Creatinine Est GFR (CKD-EPI)AfAm Est GFR (CKD-EPI)NonAf Random Glucose Lactic Acid Calcium Phosphorus Magnesium Total Bilirubin AST ALT Alkaline Phosphatase Total Protein Albumin Prolactin COVID-19 (DAVEY) Active Medications Generic Name Dose Route Start Last Admin Trade Name Freq PRN Reason Stop Dose Admin Enoxaparin Sodium 40 mg 12/12/19 10:00 12/13/19 09:25 Lovenox - SQ 40 mg DAILY EVELYNE Administration Lactated Ringer's 1,000 ml in 1,000 mls @ 100 mls/hr 12/11/19 21:45 12/13/19 10:02 Lactated Ringers Solution IV 100 mls/hr ASDIR EVELYNE Administration Pregabalin 300 mg 12/12/19 10:00 12/13/19 10:54 Lyrica - PO 300 mg BID EVELYNE Administration ASSESSMENT/PLAN: 34 year old female patient with past medical history that includes avascular necrosis of left hip, osteoporosis, kidney stones, uterine fibroids, ovarian cysts, and , who presented to the ED with abdominal pain and was diagnosed with a small bowel obstruction. 1. SBO - Patient reports severe pain worse on palpation with mild nausea - Repeat CT showed improvement of SBO - NPO - LR at 100 mls/hr 2. Secondary Amenorrhea - Elevated prolactin of 36.9 - Most likely outpatient workup # FEN - LR at 100 mls/hr, Monitoring Electrolytes, NPO DVT PPx - Lovenox Visit type - Emergency Visit Emergency Visit: Yes ED Registration Date: 12/11/19 Care time: The patient presented to the Emergency Department on the above date and was hospitalized for further evaluation of their emergent condition. - New Patient This patient is new to me today: Yes Date on this admission: 12/13/19 - Critical Care Critical Care patient: No - Discharge Referral Referred to [facility] Med [facility] No ATTENDING PHYSICIAN STATEMENT I saw and evaluated the patient. I reviewed the resident's note and discussed the case with the resident. I agree with the resident's findings and plan as documented. SUBJECTIVE: OBJECTIVE: ASSESSMENT AND PLAN:
[2019-12-14] MEDS ORDERED: MORPHINE SULFATE 2 MG/ML VIAL IVPUSH ONE (05:11)
[2019-12-14] MEDS: LACTATED RINGERS SOLUTION 1,000 ML/1,000 ML INFUS.BAG IV SCH (05:43)
[2019-12-14 07:58] LABS: HEMOGLOBIN 11.3 GM/dL (10.7-15.3); MCH 30.3 pg (25.7-33.7); MCHC 34.4 g/dl (32.0-36.0); PLATELET COUNT 325 K/MM3 (134-434); RBC 3.74 M/mm3 (3.60-5.2); RDW 12.9 % (11.6-15.6); WHITE BLOOD COUNT 6.7 K/mm3 (4.0-10.0)
[2019-12-14 08:16] LABS: BLOOD UREA NITROGEN 4.6 mg/dL (7-18); CALCIUM 8.7 mg/dL (8.5-10.1); CREATININE 0.7 mg/dL (0.55-1.3); MAGNESIUM 1.9 mg/dL (1.8-2.4); PHOSPHOROUS 4.4 mg/dL (2.5-4.9); POTASSIUM 3.8 mmol/L (3.5-5.1)
[2019-12-14] MEDS: PREGABALIN 100 MG CAPSULE PO SCH (09:18)
[2019-12-14] MEDS: ENOXAPARIN NA (PORCINE) 40 MG/0.4 ML DISP.SYRIN SQ SCH (09:19)
[2019-12-14] MEDS ORDERED: ONDANSETRON *ODT* 4 MG TABLET SL ONE (14:13)
[2019-12-14] MEDS ORDERED: PT OWN MED DRAWER 7, Y5N ONE (14:32)
[2019-12-14 15:19] VITALS: BP 112/75; PULSE 102; TEMP 98.4
[2019-12-14] MEDS ORDERED: SIMETHICONE 80 MG TAB.CHEW (FP) PO PRN (15:44)
--- NOTE | 2019-12-14 17:30 | DS ---
Physical Exam: SUBJECTIVE: Patient seen and examined, feeling better, continues to endorse abdominal tenderness. Also endorses nausea and bloating after eating food. OBJECTIVE: Vital Signs Period Temp Pulse Resp BP Sys/[place]ingham Pulse Ox Last 24 Hr 98 F-99.1 F 81-102 16-20 95-122/60-84 96-100 PHYSICAL EXAM GENERAL: female, overweight, appears slightly younger than stated age, AAO x3, no signs of acute distress but appears uncomfortable HEAD: Normal with no signs of trauma EYES: PERRL, direct and consensual reflex intact LUNGS: CTAB, no wheezing appreciated HEART: RRR, clear S1 S2 appreciated, no murmurs ABDOMEN: Soft, nondistended, hypoactive bowel sounds, mild pain on palpation of R upper and lower quadrants, no rebound tenderness EXTREMITIES: 2+ pulses in all extremities bilaterally, warm to touch, no peripheral edema NEUROLOGICAL: Cranial nerves II through XII grossly intact. Normal speech PSYCH: Normal mood, normal affect. SKIN: Warm, no rashes or lesions noted LABS Laboratory Results - last 24 hr 12/14/19 12/14/19 07:10 07:10 WBC 6.7 RBC 3.74 Hgb 11.3 Hct 33.0 MCV 88.0 MCH 30.3 MCHC 34.4 RDW 12.9 Plt Count 325 MPV 9.0 Sodium 142 Potassium 3.8 Chloride 106 Carbon Dioxide 31 Anion Gap 5 L BUN 4.6 L Creatinine 0.7 Est GFR (CKD-EPI)AfAm 131.94 Est GFR (CKD-EPI)NonAf 113.84 Random Glucose 91 Calcium 8.7 Phosphorus 4.4 Magnesium 1.9 HOSPITAL COURSE: 34yo F with PMHx PMHx of avascular necrosis of left hip (?unclear reason), osteoporosis, renal stones, uterine fibroids, ovarian cyst, and 2012 who presented with 10/[address] of the abdomen showed small bowel obstruction (possibly closed loop), small-moderate amount of pelvic free fluid, adnexal tubular structure, several uterine leiomyomas, and mild subcutaneous soft tissue stranding (postprocedural). CXR showed no acute chest pathology, and EKG was overall unremarkable. Patient remained afebrile without leukocytosis, and patient was admitted for management of small bowel obstruction. She was seen by surgery who concluded that she does not require surgery as her repeat abdominal and pelvic CT scan showed resolution of the obstruction. She was also seen by a food truck caterer who concluded that her gynecological issues are not acute and that she can follow up as an outpatient. During her hospital stay, she was treated medically for pain, nausea, and bloating. Her pain improved, she was able to tolerate PO, experienced flatulence, and defecated in the morning. Patient has been optimized for discharge home. Date of Admission:12/11/19 Date of Discharge: 12/14/19 Minutes to complete discharge: 37 Discharge Summary Problems reviewed: Yes Reason For Visit: SMALL BOWEL OBSTRUCTION Current Active Problems Abdominal pain (Acute) Condition: Stable - Instructions Diet, Activity, Other Instructions: Hospital course: You came to the hospital on 12/11/19 with severe abdominal pain. Imaging of your abdomen showed small bowel obstruction, and you received medications to help ease your pain. You were evaluated by the internal doctors and a surgeon, and the team agreed that you do not need surgery. You were also seen by an OBGyn who advised that you be seen in an outpatient setting for your gynecological findings. Over the hospital course, your pain got better, you were able to eat proper food, and a repeat image of your abdomen showed resolution of your small bowel obstruction. Medications: We will not be sending you home with any new prescriptions. You may continue your home lyrica and manage your abdominal pain with [id number]-[id number] tylenol (acetaminophen) up to 1000mg per day. Follow up: - please follow up with your primary care doctor, Dr. Vania Patricia within one week - please follow up with your food truck caterer. If you do not have one, you can follow up with Dr. Maritza Palmer who saw you while you were in the hospital. Activity/Exercise: You can gently exercise as tolerated, but avoid activities that could cause you increased abdominal pain. Diet: We overall recommend a well balanced diet. Since you have had a small bowel obstruction, we recommend that you cut your food into small pieces and chew your food for a long time. Also, we would recommend a low-fiber diet and/or a liquid diet. If you decide to eat vegetables, make sure to cook them well. Other instructions: If you are experiencing increased pain, shortness of breath, chest pain, or any other concerning symptoms, please go to your nearest emergency room or call 911. Referrals: Din,Vania, MD [Primary Care Provider] - 1 Week Disposition: HOME - Home Medications Comprehensive Discharge Medication List: Ambulatory Orders Pregabalin 1 tab PO BID 03/08/19 Ondansetron HCl 4 mg PO Q6H PRN #4 tablet 12/14/19 Simethicone [Gas Relief 80] 80 mg PO Q4H PRN #30 tab.chew 12/14/19 This patient is new to me today: No Emergency Visit: Yes ED Registration Date: 12/11/19 Care time: The patient presented to the Emergency Department on the above date and was hospitalized for further evaluation of their emergent condition. Critical Care patient: No - Discharge Referral Referred to [facility] Med [facility].C.: No ATTENDING PHYSICIAN STATEMENT I saw and evaluated the patient. I reviewed the resident's note and discussed the case with the resident. I agree with the resident's findings and plan as documented. SUBJECTIVE: OBJECTIVE: ASSESSMENT AND PLAN:
== END 2019-12-14 17:57 | disposition home or self-care (01) | DRG 247 ==
LOC: JER 13:50 → JERBED 19:53 → J5S 12-12 00:22
PROVIDERS: ADMIT Internal Medicine; ATTEND Internal Medicine
DX: K56.609 Unspecified intestinal obstruction, unspecified as to partial versus complete obstruction (principal); M87.88 Other osteonecrosis, other site; E87.2 Acidosis; M81.0 Age-related osteoporosis without current pathological fracture; N83.201 Unspecified ovarian cyst, right side; D25.9 Leiomyoma of uterus, unspecified; N91.2 Amenorrhea, unspecified; E66.3 Overweight; Z68.30 Body mass index [BMI] 30.0-30.9, adult
CPT/HCPCS: 36415; 36600; 71046-TC-FY; 74177-TC; 80048; 80053; 81003; 82272; 82803; 83605; 83690; 83735; 84100; 84146; 84443; 84702; 84703; 85025; 85027; 85610; 85730; 86850; 86900; 86901; 87086; 93005; 93010; 99285-25; J0131; Q0162; Q9967; U0003

== ENCOUNTER 2021-05-06 10:22 | Emergency (ER) | payer OTHER ==
[2021-05-06 10:43] VITALS: BP 118/87; PULSE 103; TEMP 98; BMI 27.3
[2021-05-06] MEDS ORDERED: METOCLOPRAMIDE HCL 10 MG TABLET (FP) PO ONE ×2 (12:00→12:02)
[2021-05-06] MEDS ORDERED: DEXAMETHASONE LIQUID 0.5 MG/5 ML PO ONE (12:00)
[2021-05-06] MEDS ORDERED: DEXAMETHASONE SOD PHOSPHATE 10 MG/1 ML VIAL ONE (12:02)
[2021-05-10 16:07] LABS: SARS-CoV-2 NAA Detected (Not Detected)
== END 2021-05-06 14:12 | disposition home or self-care (01) ==
LOC: JER 10:22
DX: J02.9 Acute pharyngitis, unspecified (principal)
CPT/HCPCS: 71046-TC-FY; 87070; 87077; 87804; 99284-25; C9803; U0003; U0005

== ENCOUNTER 2021-05-19 09:44 | Emergency (ER) | payer OTHER ==
[2021-05-19 10:09] VITALS: BP 111/76; PULSE 100; TEMP 97.9; BMI 31.1
[2021-05-19] MEDS ORDERED: ACETAMINOPHEN 500 MG TABLET (FP) PO ONE (10:40)
[2021-05-19] MEDS ORDERED: ACETAMINOPHEN 500 MG TABLET (FP) ONE (11:04)
[2021-05-20 13:07] LABS: SARS-CoV-2 NAA Not Detected (Not Detected)
== END 2021-05-19 12:47 | disposition home or self-care (01) ==
LOC: JER 09:44
DX: R07.9 Chest pain, unspecified (principal)
CPT/HCPCS: 71046-TC-FY; 93005; 93010; 99283-25; C9803; U0003; U0005

== ENCOUNTER 2024-02-10 05:14 | Emergency (ER) | payer BC ==
[2024-02-10 05:25] VITALS: BP 128/82; PULSE 92; RESP 18; TEMP 97.8; BMI 28.3
[2024-02-10] MEDS ORDERED: ACETAMINOPHEN INJECTION 100 ML ONE (06:35)
[2024-02-10] MEDS ORDERED: FAMOTIDINE 20 MG/50 ML IVPB 20 MG/50 ML MG IVPB ONE (06:36)
[2024-02-10] MEDS ORDERED: MAG HYDROX/AL HYDROX/SIMETH 30 ML UNIT-DOSE CUP ONE (06:36)
[2024-02-10] MEDS: LACTATED RINGERS SOLUTION 1000 ML INFUS.BAG IV ONE (06:55)
[2024-02-10] MEDS: MAG HYDROX/AL HYDROX/SIMETH 30 ML UNIT-DOSE CUP PO ONE (06:55)
[2024-02-10] MEDS: FAMOTIDINE 20 MG/50 ML IVPB 20 MG/50 ML MG IVPB ONE (06:55)
[2024-02-10] MEDS: ACETAMINOPHEN 1000 MG/100 ML BAG IVPB ONE (06:55)
[2024-02-10 07:10] LABS: BASO % 0.4 % (0-2.0); EOS % 3.8 % (0-4.5); HEMATOCRIT 36.6 % (32.4-45.2); HEMOGLOBIN 11.8 GM/dL (10.7-15.3); LYMPH % 21.1 % (8-40); MCH 29.8 pg (25.7-33.7); MCHC 32.4 g/dl (32.0-36.0); MEAN CELL VOLUME 91.9 fl (80-96); MEAN PLT VOLUME 8.4 fl (7.5-11.1); MONO % 7.5 % (3.8-10.2); NEUT % 67.2 % (42.8-82.8); PLATELET COUNT 340 10^3/uL (134-434); RBC 3.98 M/mm3 (3.60-5.2); RDW 13.8 % (11.6-15.6); WHITE BLOOD COUNT 13.7 K/mm3 (4.0-10.0)
[2024-02-10 07:19] LABS: POTASSIUM 3.9 mmol/L (3.5-5.1)
[2024-02-10 07:21] LABS: ALBUMIN 3.7 g/dl (3.4-5.0); BLOOD UREA NITROGEN 17.3 mg/dL (7-18); CALCIUM 8.7 mg/dL (8.5-10.1)
[2024-02-10 07:25] LABS: CREATININE 0.6 mg/dL (0.55-1.3)
[2024-02-10 07:26] LABS: BILIRUBIN,TOTAL 0.2 mg/dL (0.2-1); TOT PROT 7.4 g/dl (6.4-8.2)
[2024-02-10 07:58] LABS: PH,URINE 6.5 (5.0-8.0); URINE APPEARANCE CLEAR; URINE BILIRUBIN NEGATIVE (NEGATIVE); URINE COLOR YELLOW; URINE GLUCOSE (UA) NEGATIVE (NEGATIVE); URINE KETONE NEGATIVE (NEGATIVE); URINE LEUK ESTERASE NEGATIVE (NEGATIVE); URINE NITRITE NEGATIVE (NEGATIVE); URINE PROTEIN NEGATIVE (NEGATIVE); URINE UROBILINOGEN 0.2 mg/dL (0.2-1.0)
== END 2024-02-10 10:51 | disposition home or self-care (01) ==
LOC: JER 05:14
PROC: 3E033GC Introduction of Other Therapeutic Substance into Peripheral Vein, Percutaneous Approach (ICD-10-PCS; principal; 2024-02-10)
PROC: 3E033NZ Introduction of Analgesics, Hypnotics, Sedatives into Peripheral Vein, Percutaneous Approach (ICD-10-PCS; 2024-02-10)
DX: O09.521 Supervision of elderly multigravida, first trimester (principal); O26.891 Other specified pregnancy related conditions, first trimester; R10.84 Generalized abdominal pain; O21.9 Vomiting of pregnancy, unspecified; Z3A.01 Less than 8 weeks gestation of pregnancy
CPT/HCPCS: 36415; 76705-TC; 76817-TC; 80053; 81003; 83690; 84702; 85025; 86850; 86900; 86901; 87086; 99284-25; J0131